=== PATIENT | male | born 1930 | race Caucasian/White ===

== ENCOUNTER 2018-09-29 20:46 | Inpatient (IN) | payer MEDICARE, OTHER ==
[~2018-09-29] VITALS: Ht 177.8 cm; Wt 56.1 kg
--- NOTE | 2018-09-29 21:06 | ERD ---
ER Documentation Chief Complaint Chief Complaint SOB, ANXIETY HPI The patient is a 87-year-old male, presenting to the ER because of acute dyspnea for the last 5 days, denies similar symptoms previously, denies fever, chills, cough, neck pain, chest pain, abdominal pain, vomiting, dizzy, diarrhea. He does not smoke nor drink or use illicit drug Past medical history: HIV, CAD, anxiety Past surgical history: Pacemaker ROS All systems reviewed and are negative except as per history of present illness. Allergies Allergies: Coded Allergies: No Known Allergy (Unverified , 09/29/18) Physical Exam Vitals Vital Signs Date Temp Pulse Resp B/P (MAP) Pulse Ox O2 O2 Flow FiO2 Time Delivery Rate 09/29/18 68 30 99 Non 12.0 21:31 Rebreather Mask 09/29/18 97.0 68 18 140/61 88 20:50 (87) Physical Exam Const: Mild to moderate acute distress. Head: Atraumatic. Eyes: Normal Conjunctiva. ENT: Normal External Ears, Nose and Mouth. Neck: Full range of motion. No meningismus. Resp: Bilateral expiratory wheezes, tachypneic. Cardio: Regular tachycardic Abd: Soft, non distended, normal bowel sounds, non tender. Skin: No petechiae or rashes. Back: No midline or flank tenderness. Ext: No cyanosis, or edema. Neur: Awake and alert. No focal deficit Psych: Anxious Result Diagram: 09/29/18213309/29/182133 Results 24 hrs Laboratory Tests Test 09/29/18 21:34 09/29/18 21:35 09/29/18 21:36 09/29/18 22:07 White Blood 5.6 10^3/ul Count Red Blood Count 5.14 10^6/ul Hemoglobin 12.1 g/dl Hematocrit 39.5 % Mean Corpuscular 76.8 fl Volume Mean Corpuscular 23.5 pg Hemoglobin Mean Corpuscular 30.6 g/dl Hemoglobin Alexandra nt Red Cell 22.0 % Distribution Width Platelet Count 68 10^3/UL Mean Platelet fl Volume Immature 0.400 % Granulocytes % Neutrophils % % Segmented 84 % Neutrophils % (Manual) Band Neutrophils 6 % % (Manual) Lymphocytes % % Lymphocytes % 7 % (Manual) Monocytes % % Monocytes % 3 % (Manual) Eosinophils % % Basophils % % Nucleated Red 6 % Blood Cells % Immature 0.020 10^3/ul Granulocytes # Neutrophils # 10^3/ul Neutrophils # 4.7 10^3/ul (Manual) Band Neutrophils 0.3 10^3/ul # Lymphocytes 0.3 10^3/ul (Manual) Lymphocytes # 10^3/ul Monocytes # 10^3/ul Monocytes # 0.1 10^3/ul (Manual) Eosinophils # 10^3/ul Basophils # 10^3/ul Nucleated Red 10^3/ul Blood Cells # Platelet DECREASED Estimate Giant Platelets 2 % Polychromasia 1+ Poikilocytosis 3+ Anisocytosis 1+ Macrocytosis 1+ Ovalocytes 2+ Sodium Level 141 mmol/L Potassium Level 4.3 mmol/L Chloride Level 108 mmol/L Carbon Dioxide 21 mmol/L Level Anion Gap 12 Blood Urea 82 mg/dl Nitrogen Creatinine 1.54 mg/dl Est Glomerular mL/min Filtrat Rate mL/min Glucose Level 144 mg/dl Calcium Level 9.4 mg/dl Total Bilirubin 2.2 mg/dl Direct Bilirubin 0.50 mg/dl Indirect 1.7 mg/dl Bilirubin Aspartate Amino 108 IU/L Transf (AST/SGOT ) Alanine 108 IU/L Aminotransferase (ALT/SGPT) Alkaline 274 IU/L Phosphatase Troponin I 0.253 ng/ml Total Protein 6.6 g/dl Albumin 3.5 g/dl Globulin 3.10 g/dl Albumin/Globulin 1.12 Ratio Prothrombin Time 25.0 Sec Prothrombin Time 2.0 Ratio INR 2.26 International Normalized Ratio Activated 32.0 Sec Partial Thrombop last Time POC Venous 3.7 mmol/L Lactate Blood Gas Blood arterial Specimen Source Arterial Blood 09/29/2018 10:28: Date Drawn 21 PM Arterial Blood 7.388 pH (Temp corrected) Arterial Blood 25.8 mmhg pCO2 (Temp correct) Arterial Blood 64.5 mmHG pO2 (Temp corrected) Arterial Blood 15.2 mmol/L HCO3 Arterial Blood -8.2 mmol/L Base Excess Arterial Blood 89.5 mmHG Oxygen Saturatio n Regan Test ACCEPTAB Arterial Blood Right Radial Gas Puncture Site Arterial 1.0 % Blood Carboxyhem oglobin Arterial Blood 0.4 % Methemoglobin Blood Gas A-a O2 140.7 mmHg Differential Oxyhemoglobin 88.2 % Percent Blood Gas 37.0 C Temperature Blood Gas NASAL CANNULA Modality FiO2 33.0 % Blood Gas AA Notified Whom Blood Gas 09/29/2018 10:42: Notified Time 10 PM Current Medications Medications Dose Sig/Serina Start Time Status Last (Trade) Ordered Route PRN Stop Time Admin Dose Reason Admin Sodium 1,910 ml BOLUS OVER 2 09/29/18 DC 09/29/18 Chloride HOURS STAT 21:14 21:40 (NS) IV* 09/29/18 21:15 1.25 mg ONCE ONCE 09/29/18 DC 09/29/18 Levalbuterol HHN 21:30 21:31 (Xopenex 09/29/18 21:31 Neb) Ipratropium 0.5 mg ONCE ONCE 09/29/18 DC 09/29/18 [place] HHN 21:30 21:31 (Atrovent 09/29/18 21:31 0.02% (Neb)) 50 ml @ Q12 IVPB 09/29/18 09/29/18 Meropenem/Sod 100 mls/hr 22:00 22:33 ium Chloride Vancomycin 250 ml @ ONCE ONCE 09/29/18 09/29/18 HCl 125 mls/hr IVPB 22:00 22:49 09/29/18 23:59 Aspirin 162 mg ONCE ONCE 09/29/18 DC 09/29/18 (Aspirin) PO 23:00 22:46 09/29/18 23:01 Alprazolam 0.25 mg ONCE ONCE 09/29/18 DC 09/29/18 (Xanax) PO 23:00 22:46 09/29/18 23:01 Sodium 1,000 ml @ [id number] IV 09/29/18 Chloride 75 mls/hr 22:48 IV Flush 3 ml PER 09/29/18 (NS 3 ml) PROTOCOL IV 23:00 Ondansetron 4 mg Q6H PRN 09/29/18 HCl (Zofran IV 23:00 Inj) NAUSEA/VOMITI NG 650 mg Q6H PRN 09/29/18 Acetaminophen PO .PAIN 1-3 23:00 (Tylenol OR TEMP Tab) Docusate 100 mg Q12H PRN 09/29/18 Sodium PO 23:00 (Colace) .CONSTIPATION Bisacodyl 5 mg DAILY PRN 09/29/18 (Dulcolax) PO 23:00 .CONSTIPATION 1.25 mg Q4H RESP 09/29/18 Levalbuterol THERAPY PRN 23:00 (Xopenex HHN Neb) SHORTNESS OF BREATH Ipratropium 0.5 mg Q4H RESP 09/29/18 [place] THERAPY PRN 23:00 (Atrovent HHN 0.02% SHORTNESS OF (Neb)) BREATH Procedures/MDM [place] [id number] Radiology Main Line: [phone] DIAGNOSTIC IMAGING REPORT Patient: SAM ELIAS : 1930 Age: 87 Sex: M MR #: [id number] DOS: 09/29/182113 Ordering MD: MARLEY ROSS MD Location: E/R Room/Bed: PROCEDURE: XR Chest, 1 View CLINICAL INDICATION: Sepsis. TECHNIQUE: Frontal view of the chest. COMPARISON: None FINDINGS: LUNGS: Increased interstitial markings and bilateral air space disease, suggesting mild pulmonary edema versus bilateral pneumonia. PLEURAL SPACE: Unremarkable. No pneumothorax. HEART: Cardiomegaly is present. MEDIASTINUM: Unremarkable. BONES/JOINTS: Status post median sternotomy. Degenerative changes of the t horacic spine are noted. VASCULATURE: The thoracic aorta is tortuous and atherosclerotic. TUBES, LINES AND DEVICES: There is a permanent pacemaker present. IMPRESSION: 1. Cardiomegaly is present. 2. Increased interstitial markings and bilateral air space disease, suggesting mild pulmonary edema versus bilateral pneumonia. RPTAT: [facility] Radha Muniz Physician Supervisor [facility] Date Time Electronically viewed and signed by Radha Muniz Physician Supervisor [facility] on 09/29/2018 21:49 RmC/ CC: MARLEY ROSS MD [id number] EKG: Read by emergency physician Rate/Rhythm: Pacer 74 beats/min No Further attempt to interpret the EKG UA Pending MEDICAL MAKING DECISION: The patient is a 87-year-old male, presenting with acute respiratory failure, acute severe sepsis, acute bilateral pneumonia, acute kidney injury, acute dehydration, acute troponin elevation. He was treated with normal saline 30 mm/kg IV, meropenem IV, vancomycin IV for acute severe sepsis due to acute pneumonia, aspirin 162 mg p.o. for acute to elevation, Xopenex 1.25 and Atrovent 0.5 mg for acute wheezing with good response. He was able to wean down from 100% NRM to 4 L nasal cannula with good O2 saturation MDM: Patient's infectious symptoms have not stabilized and the patient is at risk of rapid decompensation. The patient will be admitted for careful hydration, antibiotic therapy, and infectious source control. SEVERE SEPSIS CRITERIA: Infectious source: pna End organ damage indicated by: [Lactate > 2.0 mmol/L SEPSIS MANAGEMENT Time of recognition of severe sepsis: 9:40p. 3 HOUR BUNDLE Blood cultures x 2 before broad-spectrum antibiotics: [Yes] 30 ml/kg NS bolus [Completed] Initial lactate []3.7 Repeat lactate Pending SEPTIC SHOCK ASSESSMENT: [No] lactic acid > 4.0 [No] Persistent hypotension (SBP < 90 or 40 mmHg drop, MAP < 65) despite 30 mL/kg IV fluid bolus CRITICAL CARE Critical care time [35] minutes Emergent fluid management while maintaining close respiratory support. Provision of immediate and broad-spectrum antibiotic therapy. Simultaneous assessment for possible sources in order to direct targeted therapy. Consideration for invasive and chemical support to prevent cardiopulmonary charo apse. Critical care time is independent of procedures performed. Departure Diagnosis: Primary Impression: Respiratory failure, acute Additional Impressions: Severe sepsis PNA (pneumonia) Elevated troponin LINDA (acute kidney injury) Dehydration Coagulopathy LFT elevation Thrombocytopenia Condition: Serious Comments I discussed the findings with the patient. I discussed the patient with Dr Calderón at 10:40p , who was made aware of the lab, the treatment, the patient condition. The patient is admitted to Tel Disclaimer: Inadvertent spelling and grammatical errors are likely due to EHR/dictation software use and do not reflect on the overall quality of patient care. Also, please note that the electronic time recorded on this note does not necessarily reflect the actual time of the patient encounter. MARLEY ROSS MD Sep 29, 2018 21:06
[2018-09-29] MEDS ORDERED: SODIUM CHLORIDE 0.9% 1L BAG IV* STA (21:14)
[2018-09-29] MEDS ORDERED: LEVALBUTEROL (NEB) 1.25 MG/0.5 ML AMP HHN ONE (21:30)
[2018-09-29] MEDS ORDERED: IPRATROPIUM (NEB) 0.5 MG/2.5 ML AMP HHN ONE (21:30)
[2018-09-29] MEDS ORDERED: MEROPENEM 1 GM/50ML(PMX) 50 ML IVPB SCH (22:00)
[2018-09-29] MEDS ORDERED: VANCOMYCIN 1 GM (PMX) 250 ML IVPB ONE (22:00)
[2018-09-29] MEDS ORDERED: SOD CHLORIDE 0.9% 1,000 ML IV SCH (22:48)
[2018-09-29] MEDS ORDERED: ASPIRIN 81 MG TAB PO ONE (23:00)
[2018-09-29] MEDS ORDERED: IPRATROPIUM (NEB) 0.5 MG/2.5 ML AMP HHN PRN (23:00)
[2018-09-29] MEDS ORDERED: ACETAMINOPHEN 325 MG TAB PO PRN (23:00)
[2018-09-29] MEDS ORDERED: ALPRAZOLAM 0.25 MG TAB PO ONE (23:00)
[2018-09-29] MEDS ORDERED: ONDANSETRON 4 MG INJ IV PRN (23:00)
[2018-09-29] MEDS ORDERED: LEVALBUTEROL (NEB) 1.25 MG/0.5 ML AMP HHN PRN (23:00)
[2018-09-29] MEDS ORDERED: NACL 0.9% 3 ML SYG IV SCH (23:00)
[2018-09-29] MEDS ORDERED: BISACODYL (EC) 5 MG TAB PO PRN (23:00)
[2018-09-29] MEDS ORDERED: DOCUSATE SODIUM 100 MG CAP PO PRN (23:00)
--- NOTE | 2018-09-29 23:36 | HP ---
Date/Time of Note Date/Time of Note DATE: 09/29/18 TIME: 23:35 Assessment/Plan VTE Prophylaxis SCD applied (from Nsg): Yes Pharmacological prophylaxis: NA/contraindicated Pharm contraindication: low risk/ambulating Lines/Catheters IV Catheter Type (from Nrsg): Saline Lock Assessment/Plan Hospital Course This is a 87-year-old male being admitted to the telemetry floor for: #1 Acute hypoxic respiratory distress: Patient was requiring increased supplemental oxygenation in the emergency department. Patient currently is on 6 L nasal cannula. Allergies possibly multifactorial secondary to underlying pneumonia/pulmonary congestion. Clinically patient appears to be dry. We will proceed with Zosyn for underlying bilateral pneumonia. Given that patient also reported to me that he has HIV there is also concern for possible PCP pneumonia. I will start him on primaquine and clindamycin at the current time given the fact that he has acute kidney injury and so I would like to hold off on Bactrim. His O2 on ABG is below 70 so we will also initiate him on Solu-Medrol 40 mg twice daily. The patient on isolation precautions. We will proceed with a CT of the chest to further evaluate #2 suspect severe sepsis: While patient is afebrile and has a normal white blood cell count patient does have bandemia as well as lactic acidosis, which could be secondary to underlying pneumonia. At the current time a covering for community-acquired versus PCP pneumonia. Trend lactic acid levels. Await culture results. #3 bilateral pneumonia: Community-acquired versus PCP pneumonia: Zosyn, clindamycin and primaquine. Will check for PCP. If patient is indeed found to have PCP pneumonia likely will need to continue Clinda and primaquine for 21 days along with adjunctive steroids. CT chest to further eval. Will consult pulmonology #4 non-STEMI: Patient currently denies any chest pain, he did report he had chest discomfort earlier. This could be type I versus type II. EKG shows paced rhythm with right bundle branch block, negative scarbossa posterior criteria. Trend cardiac enzymes, echo in the am. Consult dr. moreland #5 lactic acidosis: Secondary likely to underlying infection, hypoxia. Treat with antibiotics and nebulizers, continue to monitor #6 LINDA: I do not have a baseline creatinine. Monitor renal function. Avoid nephrotoxic agents. Renally dose antibiotics. #7 hypertension: Monitor patient blood pressures, PRN hydralazine #8 history of HIV: Concern for possible underlying PCP pneumonia. Will check CD4 count, HIV viral load, droplet precautions. Consult ID #[id number] transaminitis: We will check right upper quadrant ultrasound, patient denies any right upper quadrant pain. This could be secondary to underlying sepsis, underling liver disease. #10 Coagulopathy: Patient does have elevated INR, again this could be secondary to underlying sepsis, underlying liver disease will check right upper quadrant ultrasound. #11 thrombocytopenia: Possibly secondary to underlying liver disease, HIV. Continue to monitor. #12 DVT GI prophylaxis: SCDs, Protonix Further treatment strategy will be implemented as per the clinical course. Result Diagram: 09/29/18213309/29/182133 Results 24hrs Laboratory Tests Test 09/29/18 21:34 09/29/18 21:35 09/29/18 21:36 09/29/18 22:07 White Blood Count 5.6 Red Blood Count 5.14 Hemoglobin 12.1 L Hematocrit 39.5 L Mean Corpuscular 76.8 L Volume Mean Corpuscular 23.5 L Hemoglobin Mean Corpuscular 30.6 L Hemoglobin Concen t Red Cell 22.0 H Distribution Width Platelet Count 68 L Mean Platelet Volume Immature 0.400 Granulocytes % Neutrophils % Segmented 84 H Neutrophils % (Manual) Band Neutrophils 6 H % (Manual) Lymphocytes % Lymphocytes % 7 L (Manual) Monocytes % Monocytes % 3 (Manual) Eosinophils % Basophils % Nucleated Red 6 H Blood Cells % Immature 0.020 Granulocytes # Neutrophils # Neutrophils # 4.7 (Manual) Band Neutrophils 0.3 # Lymphocytes 0.3 L (Manual) Lymphocytes # Monocytes # Monocytes # 0.1 L (Manual) Eosinophils # Basophils # Nucleated Red Blood Cells # Platelet Estimate DECREASED Giant Platelets 2 H Polychromasia 1+ Poikilocytosis 3+ Anisocytosis 1+ Macrocytosis 1+ Ovalocytes 2+ Sodium Level 141 Potassium Level 4.3 Chloride Level 108 Carbon Dioxide 21 Level Anion Gap 12 Blood Urea 82 H Nitrogen Creatinine 1.54 H Est Glomerular Filtrat Rate mL/min Glucose Level 144 Calcium Level 9.4 Total Bilirubin 2.2 H Direct Bilirubin 0.50 H Indirect 1.7 H Bilirubin Aspartate Amino 108 H Transf (AST/SGOT) Alanine 108 H Aminotransferase (ALT/SGPT) Alkaline 274 H Phosphatase Troponin I 0.253 *H Total Protein 6.6 Albumin 3.5 Globulin 3.10 Albumin/Globulin 1.12 Ratio Prothrombin Time 25.0 H Prothrombin Time 2.0 Ratio INR International 2.26 Normalized Ratio Activated 32.0 Partial Thrombopl ast Time POC Venous 3.7 *H Lactate Blood Gas Blood arterial Specimen Source Arterial Blood 09/29/2018 10:28: Date Drawn 21 PM Arterial Blood pH 7.388 (Temp corrected) Arterial Blood 25.8 L pCO2 (Temp correct) Arterial Blood 64.5 L pO2 (Temp corrected) Arterial Blood 15.2 L HCO3 Arterial Blood -8.2 L Base Excess Arterial Blood 89.5 L Oxygen Saturation Regan Test ACCEPTAB Arterial Blood Right Radial Gas Puncture Site Arterial 1.0 Blood Carboxyhemo globin Arterial Blood 0.4 Methemoglobin Blood Gas A-a O2 140.7 H Differential Oxyhemoglobin 88.2 L Percent Blood Gas 37.0 Temperature Blood Gas NASAL CANNULA Modality FiO2 33.0 Blood Gas AA Notified Whom Blood Gas 09/29/2018 10:42: Notified Time 10 PM HPI/ROS Admit Date/Time Admit Date/Time Hx of Present Illness Chief complaint: Shortness of breath for the last 5 days This is a 87-year-old male who presented to the emergency department with symptoms of shortness of breath and cough for the last 5 days. He denies having any fevers. He did report having some left-sided chest discomfort but denies any overt chest pain. Denies any swelling in his legs. He states that he lives at home by himself. He uses able to ambulate on his own however he has been tired over the last few days. He has a history of HIV and is currently on prophylactic medications he states but does not recall the names. He does have a history of hypertension and anxiety. He also has a pacemaker. Patient is a poor historian. In the emergency department patient was treated for pneumonia with antibiotics. Allergies: NKDA Medications: Unknown ROS Const: As per HPI Eyes : No pain discharge or redness or change in visual acuity ENT: No pain, sore throat, congestion, congestion, dysphagia or discharge Respiratory: As per HPI Cardiovascular: No chest pain, palpitation, PND, or edema GI : no change in appetite, abdominal pain, nausea, vomiting, diarrhea, constipation, or change in the color his stool Genitourinary: No dysuria, hematuria, flank pain , discharge or CVA tenderness Musculoskeletal: No joint pain, back pain, neck pain, restricted range of motion in neck or joints Skin: No rash, bruising or hives Neuro: No headache, dizziness, syncope, seizure, focal weakness Endocrine: No polyuria, polydipsia, temperature intolerance Psych: No hallucination, depression, anxiety or suicidal ideation PMH/Family/Social Past Medical History HIV, hypertension, anxiety Medications Current Medications Meropenem/Sodium Chloride 50 ml @ 100 mls/hr Q12 IVPB Last administered on 09/29/18at 22:33; Admin Dose 100 MLS/HR; Start 09/29/18 at 22:00 Vancomycin HCl 250 ml @ 125 mls/hr ONCE ONCE IVPB Last administered on 09/29/18at 22:49; Admin Dose 125 MLS/HR; Start 09/29/18 at 22:00; Stop 09/29/18 at 23:59 Sodium Chloride 1,000 ml @ 75 mls/hr [id number] IV ; Start 09/29/18 at 22:48 IV Flush (NS 3 ml) 3 ml PER PROTOCOL IV ; Start 09/29/18 at 23:00 Ondansetron HCl (Zofran Inj) 4 mg Q6H PRN IV NAUSEA/VOMITING; Start 09/29/18 at 23:00 Acetaminophen (Tylenol Tab) 650 mg Q6H PRN PO .PAIN 1-3 OR TEMP; Start 09/29/18 at 23:00 Docusate Sodium (Colace) 100 mg Q12H PRN PO .CONSTIPATION; Start 09/29/18 at 23:00 Bisacodyl (Dulcolax) 5 mg DAILY PRN PO .CONSTIPATION; Start 09/29/18 at 23:00 Levalbuterol (Xopenex Neb) 1.25 mg Q4H RESP THERAPY PRN HHN SHORTNESS OF BREATH; Start 09/29/18 at 23:00 Ipratropium Wallace (Atrovent 0.02% (Neb)) 0.5 mg Q4H RESP THERAPY PRN HHN SHORTNESS OF BREATH; Start 09/29/18 at 23:00 Coded Allergies: No Known Allergy (Unverified , 09/29/18) Past Surgical History Pacemaker Family History Significant Family History: no pertinent family hx Social History Alcohol Use: none Smoking Status: Never smoker Drug Use: none Exam/Review of Systems Vital Signs Vitals Vital Signs Date Temp Pulse Resp B/P (MAP) Pulse Ox O2 O2 Flow FiO2 Time Delivery Rate 09/29/18 68 30 99 Non 12.0 21:31 Rebreather Mask 09/29/18 97.0 140/61 20:50 (87) Exam Exam General: This is a cachectic appearing male, he does appear to have mild increased work of breathing HEENT: Atraumatic, normocephalic. The pupils are equal, round and reactive. Extraocular motor are intact Neck: Supple with full range of motion. No rigidity or meningismus Chest: Nontender Lungs: diminished breath sounds bilaterally, mild increased work of breathing Heart: Normal S1-S2, Regular rhythm and rate. No murmur, S3, or S4 Abdomen: Soft , nontender, nondistended , bowel sounds are present. No guarding no rebound tenderness , No masses or organomegaly. No costovertebral temporal angle mass Extremities: Normal to inspection, no edema no cyanosis Neurologic: Normal mental status, speech normal, cranial nerves II through XII are intact, motor and sensory are intact, Additional Comments EKG shows paced rhythm with right bundle branch block, negative scar posterior criteria. PROCEDURE: XR Chest, 1 View CLINICAL INDICATION: Sepsis. TECHNIQUE: Frontal view of the chest. COMPARISON: None FINDINGS: LUNGS: Increased interstitial markings and bilateral air space disease, suggesting mild pulmonary edema versus bilateral pneumonia. PLEURAL SPACE: Unremarkable. No pneumothorax. HEART: Cardiomegaly is present. MEDIASTINUM: Unremarkable. BONES/JOINTS: Status post median sternotomy. Degenerative changes of the thoracic spine are noted. VASCULATURE: The thoracic aorta is tortuous and atherosclerotic. TUBES, LINES AND DEVICES: There is a permanent pacemaker present. IMPRESSION: 1. Cardiomegaly is present. 2. Increased interstitial markings and bilateral air space disease, suggesting mild pulmonary edema versus bilateral pneumonia. RPTAT: [facility] Radha Muniz Physician Quality Control Assessor Date Time Electronically viewed and signed by Radha Muniz Physician Quality Control Assessor on 09/29/2018 21:49 RmC/ CC: MARLEY ROSS MD [id number] HERMES BRYANT Sep 29, 2018 23:36
[2018-09-30] VITALS (10 sets, daily range): BP systolic 139–152; BP diastolic 58–78; PULSE 65–89; RESP 18–22; Ht 177.8 cm; Wt 56.1 kg
[2018-09-30] MEDS ORDERED: FUROSEMIDE 20 MG INJ IV ONE (02:00)
[2018-09-30] MEDS ORDERED: FUROSEMIDE 40 MG INJ IV ONE (02:00)
[2018-09-30] MEDS: ALBUMIN HUMAN 25% 100 ML IV SCH ×2 (05:09→06:30)
[2018-09-30] MEDS: PIPER-TAZO 3.375 GM IV (PMX) 100 ML IVPB SCH ×3 (05:09→17:32)
[2018-09-30] MEDS ORDERED: METHYLPREDNISOLONE 40 MG INJ IV SCH (06:00)
[2018-09-30] MEDS ORDERED: PRIMAQUINE 15 MG TAB PO SCH (06:00)
[2018-09-30] MEDS ORDERED: CLINDAMYCIN 600 MG/D5W (PMX) 50 ML IVPB SCH (06:00)
[2018-09-30] MEDS: METHYLPREDNISOLONE 40 MG INJ IV SCH ×2 (06:29→21:36)
[2018-09-30] MEDS ORDERED: MAGNESIUM SULFATE 1 GM/D5W 100 ML IVPB ONE (07:00)
[2018-09-30] MEDS ORDERED: METOPROLOL 5 MG INJ IV ONE (07:00)
--- NOTE | 2018-09-30 08:11 | CONS ---
Assessment/Plan Assessment/Plan Hospital Course (Demo Recall) 1) bilateral airspace disease by CT, pulmonary edema vs caitlyn pneumonia he has no systemic symptoms such as fever, chills, NS, muscle aches to suggest active infection his WBC is WNL he has HIV but I doubt this is PCP until G6PD results are back to avoid dapsone or primaquin so d/c clinda/primaquin and start mepron I will talk to his HIV doc later today and find out what his CD4 counts are like and if they have been >250 will d/c mepron zosyn started and to continue and will add azithro for atypical lung coverage check legionella, mycoplasma get viral PCR of nares check nasal for MRSA 2) HIV pt is on complera which contains tenofovir which can cause renal issues and lactic acidosis hold complera at present talk to primary HIV doc regarding prior renal function 3) renal insufficiency see above check u/a and urine cx 4) increase in LFT's asymptomatic, if he has CHF this could be a mainfestation of vascular congestion u/s did not suggest liver disease but there was some thickening of GB wall, GB distension and a little of fluid around the GB consider HIDA scan 5) 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 no CP Past Medical History CAD, HIV, HTN Home Meds No Active Prescriptions or Reported Meds Medications Current Medications IV Flush (NS 3 ml) 3 ml PER PROTOCOL IV ; Start 09/29/18 at 23:00 Ondansetron HCl (Zofran Inj) 4 mg Q6H PRN IV NAUSEA/VOMITING; Start 09/29/18 at 23:00 Acetaminophen (Tylenol Tab) 650 mg Q6H PRN PO .PAIN 1-3 OR TEMP; Start 09/29/18 at 23:00 Docusate Sodium (Colace) 100 mg Q12H PRN PO .CONSTIPATION; Start 09/29/18 at 23:00 Bisacodyl (Dulcolax) 5 mg DAILY PRN PO .CONSTIPATION; Start 09/29/18 at 23:00 Levalbuterol (Xopenex Neb) 1.25 mg Q4H RESP THERAPY PRN HHN SHORTNESS OF BREATH; Start 09/29/18 at 23:00 Ipratropium [place] (Atrovent 0.02% (Neb)) 0.5 mg Q4H RESP THERAPY PRN HHN SHORTNESS OF BREATH; Start 09/29/18 at 23:00 Piperacillin Sod/ Tazobactam Sod 100 ml @ 200 mls/hr Q6 IVPB Last administered on 09/30/18at 05:09; Admin Dose 200 MLS/HR; Start 09/30/18 at 06:00 Methylprednisolone Sodium Succinate (Solu-Medrol) 40 mg Q12 IV Last administered on 09/30/18at 06:29; Admin Dose 40 MG; Start 09/30/18 at 06:00 Primaquine Phosphate (Primaquine) 30 mg DAILY PO Last administered on 09/30/18at 06:30; Admin Dose 30 MG; Start 09/30/18 at 06:00 Clindamycin HCl/ Dextrose 50 ml @ 50 mls/hr Q8 IVPB Last administered on 09/30/18at 06:37; Admin Dose 50 MLS/HR; Start 09/30/18 at 06:00 Famotidine (Pepcid Iv) 20 mg DAILY IV ; Start 09/30/18 at 09:00 Magnesium Sulfate/ Dextrose 100 ml @ 100 mls/hr ONCE ONCE IVPB ; Start 9 at 07:00; Stop 09/30/18 at 07:59 Allergies: Coded Allergies: No Known Allergy (Unverified , 09/29/18) Past Surgical History pacer, CABG Social History Alcohol Use: none Smoking Status: Never smoker Drug Use: none Exam/Review of Systems Exam Vitals Vital Signs Date Temp Pulse Resp B/P (MAP) Pulse Ox O2 O2 Flow FiO2 Time Delivery Rate 09/30/18 98.0 67 22 139/64 92 Nasal 07:38 (89) Cannula 09/30/18 6.0 05:45 Intake and Output 09/29/18 09/29/18 09/30/18 1414:59 22:59 06:59 IntakeIntake Total 1910 ml BalanceBalance 1910 ml Constitutional: alert, other (thin with sunken in cheeks) Eyes: nl sclera ENMT: mucosa pink and moist, other (no teeth) Neck: supple Respiratory: clear to auscultation Cardiovascular: regular rate and rhythm Gastrointestinal: soft, non-tender Musculoskeletal: nl extremities to inspection Neurological: other (non focal) Results Result Diagram: 09/29/18 2134 09/30/18 0529 Results 24hrs Laboratory Tests Test 09/29/18 21:34 09/29/18 21:35 09/29/18 21:36 09/29/18 22:07 White Blood Count 5.6 Red Blood Count 5.14 Hemoglobin 12.1 L Hematocrit 39.5 L Mean Corpuscular 76.8 L Volume Mean Corpuscular 23.5 L Hemoglobin Mean Corpuscular 30.6 L Hemoglobin Concen t Red Cell 22.0 H Distribution Width Platelet Count 68 L Mean Platelet Volume Immature 0.400 Granulocytes % Neutrophils % Segmented 84 H Neutrophils % (Manual) Band Neutrophils 6 H % (Manual) Lymphocytes % Lymphocytes % 7 L (Manual) Monocytes % Monocytes % 3 (Manual) Eosinophils % Basophils % Nucleated Red 6 H Blood Cells % Immature 0.020 Granulocytes # Neutrophils # Neutrophils # 4.7 (Manual) Band Neutrophils 0.3 # Lymphocytes 0.3 L (Manual) Lymphocytes # Monocytes # Monocytes # 0.1 L (Manual) Eosinophils # Basophils # Nucleated Red Blood Cells # Platelet Estimate DECREASED Giant Platelets 2 H Polychromasia 1+ Poikilocytosis 3+ Anisocytosis 1+ Macrocytosis 1+ Ovalocytes 2+ Sodium Level 141 Potassium Level 4.3 Chloride Level 108 Carbon Dioxide 21 Level Anion Gap 12 Blood Urea 82 H Nitrogen Creatinine 1.54 H Est Glomerular Filtrat Rate mL/min Glucose Level 144 Calcium Level 9.4 Total Bilirubin 2.2 H Direct Bilirubin 0.50 H Indirect 1.7 H Bilirubin Aspartate Amino 108 H Transf (AST/SGOT) Alanine 108 H Aminotransferase (ALT/SGPT) Alkaline 274 H Phosphatase Troponin I 0.253 *H Total Protein 6.6 Albumin 3.5 Globulin 3.10 Albumin/Globulin 1.12 Ratio Prothrombin Time 25.0 H Prothrombin Time 2.0 Ratio INR International 2.26 Normalized Ratio Activated 32.0 Partial Thrombopl ast Time POC Venous 3.7 *H Lactate Blood Gas Blood arterial Specimen Source Arterial Blood 09/29/2018 10:28: Date Drawn 21 PM Arterial Blood pH 7.388 (Temp corrected) Arterial Blood 25.8 L pCO2 (Temp correct) Arterial Blood 64.5 L pO2 (Temp corrected) Arterial Blood 15.2 L HCO3 Arterial Blood -8.2 L Base Excess Arterial Blood 89.5 L Oxygen Saturation Regan Test ACCEPTAB Arterial Blood Right Radial Gas Puncture Site Arterial 1.0 Blood Carboxyhemo globin Arterial Blood 0.4 Methemoglobin Blood Gas A-a O2 140.7 H Differential Oxyhemoglobin 88.2 L Percent Blood Gas 37.0 Temperature Blood Gas NASAL CANNULA Modality FiO2 33.0 Blood Gas AA Notified Whom Blood Gas 09/29/2018 10:42: Notified Time 10 PM Test 09/29/18 22:45 09/30/18 00:00 09/30/18 00:06 09/30/18 02:07 B-Type 20007 H Natriuretic Peptide Lactic Acid Level 3.5 *H 3.7 *H Creatine Kinase 153 Creatine Kinase 5.9 Index Creatinine Kinase 9.00 H MB (Mass) Troponin I 0.238 *H Test 09/30/18 05:29 09/30/18 05:30 Sodium Level 145 H Potassium Level 4.4 Chloride Level 113 H Carbon Dioxide 18 L Level Anion Gap 14 H Blood Urea 82 H Nitrogen Creatinine 1.36 H Est Glomerular Filtrat Rate mL/min Glucose Level 131 Hemoglobin A1c 5.8 Calcium Level 8.7 Magnesium Level 2.4 2.2 Creatine Kinase 134 Creatine Kinase 7.0 Index Creatinine Kinase 9.36 H MB (Mass) Troponin I 0.223 *H Procalcitonin 0.50 H Hepatitis A Pending Antibody Total Hepatitis B NEGATIVE Surface Antigen Hepatitis B POSITIVE H Surface Antibody Hepatitis B Core Pending Total Antibody Hepatitis C Pending Antibody HIV (1&2) REACTIVE H Antibody C-Reactive 15.5 H Protein Thyroid 3.660 Stimulating Hormone (TSH) Medications Medication Current Medications IV Flush (NS 3 ml) 3 ml PER PROTOCOL IV ; Start 09/29/18 at 23:00 Ondansetron HCl (Zofran Inj) 4 mg Q6H PRN IV NAUSEA/VOMITING; Start 09/29/18 at 23:00 Acetaminophen (Tylenol Tab) 650 mg Q6H PRN PO .PAIN 1-3 OR TEMP; Start 09/29/18 at 23:00 Docusate Sodium (Colace) 100 mg Q12H PRN PO .CONSTIPATION; Start 09/29/18 at 23:00 Bisacodyl (Dulcolax) 5 mg DAILY PRN PO .CONSTIPATION; Start 09/29/18 at 23:00 Levalbuterol (Xopenex Neb) 1.25 mg Q4H RESP THERAPY PRN HHN SHORTNESS OF BREATH; Start 09/29/18 at 23:00 Ipratropium [place] (Atrovent 0.02% (Neb)) 0.5 mg Q4H RESP THERAPY PRN HHN SHORTNESS OF BREATH; Start 09/29/18 at 23:00 Piperacillin Sod/ Tazobactam Sod 100 ml @ 200 mls/hr Q6 IVPB Last administered on 09/30/18at 05:09; Admin Dose 200 MLS/HR; Start 09/30/18 at 06:00 Methylprednisolone Sodium Succinate (Solu-Medrol) 40 mg Q12 IV Last administered on 09/30/18at 06:29; Admin Dose 40 MG; Start 09/30/18 at 06:00 Primaquine Phosphate (Primaquine) 30 mg DAILY PO Last administered on 09/30/18at 06:30; Admin Dose 30 MG; Start 09/30/18 at 06:00 Clindamycin HCl/ Dextrose 50 ml @ 50 mls/hr Q8 IVPB Last administered on 09/30/18at 06:37; Admin Dose 50 MLS/HR; Start 09/30/18 at 06:00 Famotidine (Pepcid Iv) 20 mg DAILY IV ; Start 09/30/18 at 09:00 Magnesium Sulfate/ Dextrose 100 ml @ 100 mls/hr ONCE ONCE IVPB ; Start 09/30/18 at 07:00; Stop 09/30/18 at 07:59 SCARLET ROBLERO MD Sep 30, 2018 08:09
[2018-09-30] MEDS: FAMOTIDINE 20 MG INJ IV SCH (08:16)
[2018-09-30] MEDS: ATOVAQUONE 750 MG/5 ML CUP PO SCH ×2 (10:25→21:36)
[2018-09-30] MEDS: AZITHROMYCIN 500MG/NS (PMX) 250 ML IVPB SCH (10:25)
--- NOTE | 2018-09-30 10:58 | CONS ---
Assessment/Plan Assessment/Plan Assessment/Plan (Daily) Chest x-ray showing cardiomegaly with pulmonary edema. CT scan of chest showing similar findings. BNP level is extremely high. Troponins are positive as well. Assessment recommendations; 1. Patient admitted with hypoxemia likely due to underlying HIV induced cardiomyopathy with pulmonary edema as the predominant etiology for hypoxemia and shortness of breath. Patient currently on appropriate diuretic regimen. 2. Based upon examination and CT chest as well as chest x-ray findings, I do not suspect any pneumonia. 3. Severely cachectic state. 4. Anemia and severe thrombocytopenia. 5. Chronic renal insufficiency. Continue with supportive care. Obtain follow-up chest x-ray in 24 hours. If there is significant improvement in chest x-ray, I would recommend stopping antibiotics. ID consult is requested as well. Prognosis is poor. Patient is appropriately DNR status. Consultation Date/Type/Reason Admit Date/Time Date of Consultation: Sep 30, 2018 Type of Consult Pulmonary Patient is a 87-year-old male who has been admitted to the hospital with hypoxemia at senior living. Upon evaluation a chest x-ray was done which is showing significant cardiomegaly with changes consistent with pulmonary edema, confirmed by CT imaging of the chest later. Patient denies any fever, sputum production, hemoptysis, any wheezing. According to him he is feeling much better since admission. Denies any abdominal pain, nausea or vomiting. Past medical history; 1. Patient is HIV positive. 2. Severely emaciated state. 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 4. Anemia and severe thrombocytopenia. 5. Chronic renal insufficiency. 6. History of pacemaker placement. Medications; reviewed. Allergies; none. Social history; patient has a history of smoking. Family history; noncontributory. Occupational history; patient has had miscellaneous occupations. Review of systems; denies any headache, visual changes, seizures. Any dysphasia. Denies any chest pain, angina. Any coughing or wheezing. Any sputum production or hemoptysis. Complains of chronic shortness of breath. Patient maintained on 24 hours of oxygen at senior living. Complains of weight loss. Denies any abdominal pain, hematochezia, melena. Patient experiencing continued weight loss. Complains of easy skin bruising. General exam; elderly male, appears totally macerated. Awake and alert. Currently in no distress. Date/Time of Note DATE: 09/30/18 TIME: 10:53 Past Medical History Home Meds No Active Prescriptions or Reported Meds Medications Current Medications IV Flush (NS 3 ml) 3 ml PER PROTOCOL IV ; Start 09/29/18 at 23:00 Ondansetron HCl (Zofran Inj) 4 mg Q6H PRN IV NAUSEA/VOMITING; Start 09/29/18 at 23:00 Acetaminophen (Tylenol Tab) 650 mg Q6H PRN PO .PAIN 1-3 OR TEMP; Start 09/29/18 at 23:00 Docusate Sodium (Colace) 100 mg Q12H PRN PO .CONSTIPATION; Start 09/29/18 at 23:00 Bisacodyl (Dulcolax) 5 mg DAILY PRN PO .CONSTIPATION; Start 09/29/18 at 23:00 Levalbuterol (Xopenex Neb) 1.25 mg Q4H RESP THERAPY PRN HHN SHORTNESS OF BREATH; Start 09/29/18 at 23:00 Ipratropium [place] (Atrovent 0.02% (Neb)) 0.5 mg Q4H RESP THERAPY PRN HHN SHORTNESS OF BREATH; Start 09/29/18 at 23:00 Piperacillin Sod/ Tazobactam Sod 100 ml @ 200 mls/hr Q6 IVPB Last administered on 09/30/18at 05:09; Admin Dose 200 MLS/HR; Start 09/30/18 at 06:00 Methylprednisolone Sodium Succinate (Solu-Medrol) 40 mg Q12 IV Last administered on 09/30/18at 06:29; Admin Dose 40 MG; Start 09/30/18 at 06:00 Famotidine (Pepcid Iv) 20 mg DAILY IV Last administered on 09/30/18at 08:16; Admin Dose 20 MG; Start 09/30/18 at 09:00 Atovaquone (Mepron) 750 mg BID PO Last administered on 09/30/18at 10:25; Admin Dose 750 MG; Start 09/30/18 at 09:00 Azithromycin 250 ml @ 250 mls/hr Q24H IVPB Last administered on 09/30/18at 10:25; Admin Dose 250 MLS/HR; Start 09/30/18 at 08:00 Allergies: Coded Allergies: No Known Allergy (Unverified , 09/29/18) Social History Alcohol Use: none Smoking Status: Never smoker Drug Use: none Exam/Review of Systems Exam Vitals Vital Signs Date Temp Pulse Resp B/P (MAP) Pulse Ox O2 O2 Flow FiO2 Time Delivery Rate 09/30/18 67 08:00 09/30/18 98.0 22 139/64 92 Nasal 07:38 (89) Cannula 09/30/18 6.0 05:45 Intake and Output 09/29/18 09/29/18 09/30/18 1515:00 23:00 07:00 IntakeIntake Total 1910 ml BalanceBalance 1910 ml Exam H EENT exam; supple neck, positive JVD. No lymphadenopathy. Midline trachea. No thyromegaly. Patient is edentulous. No oral thrush. Chest exam; diminished breath sounds bilaterally. S1-S2 audible, no murmurs. Regular rhythm. There is severe loss of muscles and intercostal spaces. Abdomen exam; scaphoid. Nontender. No organomegaly. Bowel sounds audible. Extremity exam; no peripheral edema. There is severe muscle loss involving the entire body. [employer] exam; no focal deficit. Results Result Diagram: 09/29/184 09/30/18 0529 Results 24hrs Laboratory Tests Test 09/29/18 21:34 09/29/18 21:35 09/29/18 21:36 09/29/18 22:07 White Blood Count 5.6 Red Blood Count 5.14 Hemoglobin 12.1 L Hematocrit 39.5 L Mean Corpuscular 76.8 L Volume Mean Corpuscular 23.5 L Hemoglobin Mean Corpuscular 30.6 L Hemoglobin Concen t Red Cell 22.0 H Distribution Width Platelet Count 68 L Mean Platelet Volume Immature 0.400 Granulocytes % Neutrophils % Segmented 84 H Neutrophils % (Manual) Band Neutrophils 6 H % (Manual) Lymphocytes % Lymphocytes % 7 L (Manual) Monocytes % Monocytes % 3 (Manual) Eosinophils % Basophils % Nucleated Red 6 H Blood Cells % Immature 0.020 Granulocytes # Neutrophils # Neutrophils # 4.7 (Manual) Band Neutrophils 0.3 # Lymphocytes 0.3 L (Manual) Lymphocytes # Monocytes # Monocytes # 0.1 L (Manual) Eosinophils # Basophils # Nucleated Red Blood Cells # Platelet Estimate DECREASED Giant Platelets 2 H Polychromasia 1+ Poikilocytosis 3+ Anisocytosis 1+ Macrocytosis 1+ Ovalocytes 2+ Sodium Level 141 Potassium Level 4.3 Chloride Level 108 Carbon Dioxide 21 Level Anion Gap 12 Blood Urea 82 H Nitrogen Creatinine 1.54 H Est Glomerular Filtrat Rate mL/min Glucose Level 144 Calcium Level 9.4 Total Bilirubin 2.2 H Direct Bilirubin 0.50 H Indirect 1.7 H Bilirubin Aspartate Amino 108 H Transf (AST/SGOT) Alanine 108 H Aminotransferase (ALT/SGPT) Alkaline 274 H Phosphatase Troponin I 0.253 *H Total Protein 6.6 Albumin 3.5 Globulin 3.10 Albumin/Globulin 1.12 Ratio Prothrombin Time 25.0 H Prothrombin Time 2.0 Ratio INR International 2.26 Normalized Ratio Activated 32.0 Partial Thrombopl ast Time POC Venous 3.7 *H Lactate Blood Gas Blood arterial Specimen Source Arterial Blood 09/29/2018 10:28: Date Drawn 21 PM Arterial Blood pH 7.388 (Temp corrected) Arterial Blood 25.8 L pCO2 (Temp correct) Arterial Blood 64.5 L pO2 (Temp corrected) Arterial Blood 15.2 L HCO3 Arterial Blood -8.2 L Base Excess Arterial Blood 89.5 L Oxygen Saturation Regan Test ACCEPTAB Arterial Blood Right Radial Gas Puncture Site Arterial 1.0 Blood Carboxyhemo globin Arterial Blood 0.4 Methemoglobin Blood Gas A-a O2 140.7 H Differential Oxyhemoglobin 88.2 L Percent Blood Gas 37.0 Temperature Blood Gas NASAL CANNULA Modality FiO2 33.0 Blood Gas AA Notified Whom Blood Gas 09/29/2018 10:42: Notified Time 10 PM Test 09/29/18 22:45 09/30/18 00:00 09/30/18 00:06 09/30/18 02:07 B-Type 39722 H Natriuretic Peptide Lactic Acid Level 3.5 *H 3.7 *H Creatine Kinase 153 Creatine Kinase 5.9 Index Creatinine Kinase 9.00 H MB (Mass) Troponin I 0.238 *H Test 09/30/18 05:29 09/30/18 05:30 Erythrocyte 4 Sedimentation Rate Sodium Level 145 H Potassium Level 4.4 Chloride Level 113 H Carbon Dioxide 18 L Level Anion Gap 14 H Blood Urea 82 H Nitrogen Creatinine 1.36 H Est Glomerular Filtrat Rate mL/min Glucose Level 131 Hemoglobin A1c 5.8 Calcium Level 8.7 Magnesium Level 2.4 2.2 Creatine Kinase 134 Creatine Kinase 7.0 Index Creatinine Kinase 9.36 H MB (Mass) Troponin I 0.223 *H Procalcitonin 0.50 H Hepatitis A POSITIVE H Antibody Total Hepatitis B NEGATIVE Surface Antigen Hepatitis B POSITIVE H Surface Antibody Hepatitis B Core REACTIVE H Total Antibody Hepatitis C NEGATIVE Antibody HIV (1&2) REACTIVE H Antibody C-Reactive 15.5 H Protein Thyroid 3.660 Stimulating Hormone (TSH) Medications Medication Current Medications IV Flush (NS 3 ml) 3 ml PER PROTOCOL IV ; Start 09/29/18 at 23:00 Ondansetron HCl (Zofran Inj) 4 mg Q6H PRN IV NAUSEA/VOMITING; Start 09/29/18 at 23:00 Acetaminophen (Tylenol Tab) 650 mg Q6H PRN PO .PAIN 1-3 OR TEMP; Start 09/29/18 at 23:00 Docusate Sodium (Colace) 100 mg Q12H PRN PO .CONSTIPATION; Start 09/29/18 at 23:00 Bisacodyl (Dulcolax) 5 mg DAILY PRN PO .CONSTIPATION; Start 09/29/18 at 23:00 Levalbuterol (Xopenex Neb) 1.25 mg Q4H RESP THERAPY PRN HHN SHORTNESS OF BREATH; Start 09/29/18 at 23:00 Ipratropium [place] (Atrovent 0.02% (Neb)) 0.5 mg Q4H RESP THERAPY PRN HHN SHORTNESS OF BREATH; Start 09/29/18 at 23:00 Piperacillin Sod/ Tazobactam Sod 100 ml @ 200 mls/hr Q6 IVPB Last administered on 09/30/18at 05:09; Admin Dose 200 MLS/HR; Start 09/30/18 at 06:00 Methylprednisolone Sodium Succinate (Solu-Medrol) 40 mg Q12 IV Last administered on 09/30/18at 06:29; Admin Dose 40 MG; Start 09/30/18 at 06:00 Famotidine (Pepcid Iv) 20 mg DAILY IV Last administered on 09/30/18at 08:16; Admin Dose 20 MG; Start 09/30/18 at 09:00 Atovaquone (Mepron) 750 mg BID PO Last administered on 09/30/18at 10:25; Admin Dose 750 MG; Start 09/30/18 at 09:00 Azithromycin 250 ml @ 250 mls/hr Q24H IVPB Last administered on 09/30/18at 10:25; Admin Dose 250 MLS/HR; Start 09/30/18 at 08:00 WILBER ZHU Sep 30, 2018 10:58
--- NOTE | 2018-09-30 12:07 | CONS ---
Assessment/Plan Assessment/Plan Hospital Course (Demo Recall) Summary Assessment and Plan: Assessment: Bilateral airspace disease noted on c imaging -Pulmonary edema versus bilateral pneumonia Infectious disease/pulmonary following Elevated LFTs with indirect hyperbilirubinemia -Ultrasound of the liver shows thickening of the gallbladder without evidence of gallstones or sludge- -Chronic liver disease versus hypoproteinemia versus acalculous cholec ystitis -Hepatitis B core antibody is reactive as well as hepatitis B surface antibody -Hep A total reactive- awaiting IgM -Pt on Complera which has a side effect of elevated LFTs - Will additionally check GABE, AMA, ASMA Microcytic anemia Thrombocytopenia Coagulopathy HIV Renal insufficiency CAD with history of pacemaker and CABG Elevated troponin-cardiology has been consulted Plan: We will additionally check GABE, AMA, ASMA Pt currently asymptomatic no complaints of abdominal pain, nausea, or vomiting Can consider HIDA scan for further evaluation Trend LFTs- concerns for underlying cirrhosis given Monitor H/H- transfuse as needed Will continue to monitor at this time Patient seen in collaboration with Dr. Forte CC: AMY FORTE MD ; Consultation Date/Type/Reason Admit Date/Time Date of Consultation: Sep 30, 2018 Type of Consult GI Reason for Consultation Elevated LFTs Date/Time of Note DATE: 09/30/18 TIME: 11:33 Hx of Present Illness This is an 87-year-old male with past medical history of HIV, HTN, CAD with a history of CABG, chronic renal insufficiency, pacemaker placement who was admitted to the hospital for shortness of breath and left-sided chest discomfort a CT of the chest was obtained showing severe cardiomegaly, bilateral pleural effusion, extensive airspace disease throughout both lungs likely representing pulmonary edema versus bilateral pneumonia, mild ascites in the upper abdomen likely related to fluid overload. Labs were obtained showing a microcytic anemia, thrombocytopenia, coagulopathy, elevated troponin, and elevated liver function tests including an indirect hyperbilirubinemia. Liver ultrasound was obtained showing thickening of the gallbladder wall without evidence of galls tones or sludge [place] could be related to chronic liver disease, hypoproteinemia, or a calculus cholecystitis. No biliary duction identified, small free fluid in the upper abdomen. Review of Systems: A 12 system, review was conducted and is negative except as noted in the HPI or here. Past Medical History Home Meds No Active Prescriptions or Reported Meds Medications Current Medications IV Flush (NS 3 ml) 3 ml PER PROTOCOL IV ; Start 09/29/18 at 23:00 Ondansetron HCl (Zofran Inj) 4 mg Q6H PRN IV NAUSEA/VOMITING; Start 09/29/18 at 23:00 Acetaminophen (Tylenol Tab) 650 mg Q6H PRN PO .PAIN 1-3 OR TEMP; Start 09/29/18 at 23:00 Docusate Sodium (Colace) 100 mg Q12H PRN PO .CONSTIPATION; Start 09/29/18 at 23:00 Bisacodyl (Dulcolax) 5 mg DAILY PRN PO .CONSTIPATION; Start 09/29/18 at 23:00 Levalbuterol (Xopenex Neb) 1.25 mg Q4H RESP THERAPY PRN HHN SHORTNESS OF BREATH; Start 09/29/18 at 23:00 Ipratropium [place] (Atrovent 0.02% (Neb)) 0.5 mg Q4H RESP THERAPY PRN HHN SHORTNESS OF BREATH; Start 09/29/18 at 23:00 Piperacillin Sod/ Tazobactam Sod 100 ml @ 200 mls/hr Q6 IVPB Last administered on 09/30/18at 05:09; Admin Dose 200 MLS/HR; Start 09/30/18 at 06:00 Methylprednisolone Sodium Succinate (Solu-Medrol) 40 mg Q12 IV Last administered on 09/30/18at 06:29; Admin Dose 40 MG; Start 09/30/18 at 06:00 Famotidine (Pepcid Iv) 20 mg DAILY IV Last administered on 09/30/18at 08:16; Admin Dose 20 MG; Start 09/30/18 at 09:00 Atovaquone (Mepron) 750 mg BID PO Last administered on 09/30/18at 10:25; Admin Dose 750 MG; Start 09/30/18 at 09:00 Azithromycin 250 ml @ 250 mls/hr Q24H IVPB Last administered on 09/30/18 10:25; Admin Dose 250 MLS/HR; Start 09/30/18 at 08:00 Allergies: Coded Allergies: No Known Allergy (Unverified , 09/29/18) Social History Alcohol Use: none Smoking Status: Never smoker Drug Use: none Exam/Review of Systems Exam Vitals Vital Signs Date Temp Pulse Resp B/P (MAP) Pulse Ox O2 O2 Flow FiO2 Time Delivery Rate 09/30/18 67 08:00 09/30/18 98.0 22 139/64 92 Nasal 07:38 (89) Cannula 09/30/18 6.0 05:45 Intake and Output 09/29/18 09/29/18 09/30/18 1515:00 23:00 07:00 IntakeIntake Total 1910 ml BalanceBalance 1910 ml Exam PHYSICAL EXAMINATION: GENERAL: Emaciated, alert & oriented x 3, dyspnea O2 in place SKIN: No lesions HEAD: Normocephalic, atraumatic, no tenderness. EYES: Pupils equal reactive to light and accommodation, no discharge. EARS/NOSE AND THROAT: Ears normal, nose normal, oropharynx normal. NECK: Supple, no masses. CHEST: Inspection within normal limits. CARDIOVASCULAR: Heart: Regular rate and rhythm RESPIRATORY: Diminished GASTROINTESTINAL AND LIVER: Abdomen: Soft, non tenderness, non-distended, normoactive bowel sounds. Rectal: Deferred. EXTREMITIES: No cyanosis, clubbing or edema. Results Result Diagram: 09/29/184 09/30/18 0529 Results 24hrs Laboratory Tests Test 09/29/18 21:34 09/29/18 21:35 09/29/18 21:36 09/29/18 22:07 White Blood Count 5.6 Red Blood Count 5.14 Hemoglobin 12.1 L Hematocrit 39.5 L Mean Corpuscular 76.8 L Volume Mean Corpuscular 23.5 L Hemoglobin Mean Corpuscular 30.6 L Hemoglobin Concen t Red Cell 22.0 H Distribution Width Platelet Count 68 L Mean Platelet Volume Immature 0.400 Granulocytes % Neutrophils % Segmented 84 H Neutrophils % (Manual) Band Neutrophils 6 H % (Manual) Lymphocytes % Lymphocytes % 7 L (Manual) Monocytes % Monocytes % 3 (Manual) Eosinophils % Basophils % Nucleated Red 6 H Blood Cells % Immature 0.020 Granulocytes # Neutrophils # Neutrophils # 4.7 (Manual) Band Neutrophils 0.3 # Lymphocytes 0.3 L (Manual) Lymphocytes # Monocytes # Monocytes # 0.1 L (Manual) Eosinophils # Basophils # Nucleated Red Blood Cells # Platelet Estimate DECREASED Giant Platelets 2 H Polychromasia 1+ Poikilocytosis 3+ Anisocytosis 1+ Macrocytosis 1+ Ovalocytes 2+ Sodium Level 141 Potassium Level 4.3 Chloride Level 108 Carbon Dioxide 21 Level Anion Gap 12 Blood Urea 82 H Nitrogen Creatinine 1.54 H Est Glomerular Filtrat Rate mL/min Glucose Level 144 Calcium Level 9.4 Total Bilirubin 2.2 H Direct Bilirubin 0.50 H Indirect 1.7 H Bilirubin Aspartate Amino 108 H Transf (AST/SGOT) Alanine 108 H Aminotransferase (ALT/SGPT) Alkaline 274 H Phosphatase Troponin I 0.253 *H Total Protein 6.6 Albumin 3.5 Globulin 3.10 Albumin/Globulin 1.12 Ratio Prothrombin Time 25.0 H Prothrombin Time 2.0 Ratio INR International 2.26 Normalized Ratio Activated 32.0 Partial Thrombopl ast Time POC Venous 3.7 *H Lactate Blood Gas Blood arterial Specimen Source Arterial Blood 09/29/2018 10:28: Date Drawn 21 PM Arterial Blood pH 7.388 (Temp corrected) Arterial Blood 25.8 L pCO2 (Temp correct) Arterial Blood 64.5 L pO2 (Temp corrected) Arterial Blood 15.2 L HCO3 Arterial Blood -8.2 L Base Excess Arterial Blood 89.5 L Oxygen Saturation Regan Test ACCEPTAB Arterial Blood Right Radial Gas Puncture Site Arterial 1.0 Blood Carboxyhemo globin Arterial Blood 0.4 Methemoglobin Blood Gas A-a O2 140.7 H Differential Oxyhemoglobin 88.2 L Percent Blood Gas 37.0 Temperature Blood Gas NASAL CANNULA Modality FiO2 33.0 Blood Gas AA Notified Whom Blood Gas 09/29/2018 10:42: Notified Time 10 PM Test 09/29/18 22:45 09/30/18 00:00 09/30/18 00:06 09/30/18 02:07 B-Type 64106 H Natriuretic Peptide Lactic Acid Level 3.5 *H 3.7 *H Creatine Kinase 153 Creatine Kinase 5.9 Index Creatinine Kinase 9.00 H MB (Mass) Troponin I 0.238 *H Test 09/30/18 05:29 09/30/18 05:30 09/30/18 10:32 Erythrocyte 4 Sedimentation Rate Sodium Level 145 H Potassium Level 4.4 Chloride Level 113 H Carbon Dioxide 18 L Level Anion Gap 14 H Blood Urea 82 H Nitrogen Creatinine 1.36 H Est Glomerular Filtrat Rate mL/min Glucose Level 131 Hemoglobin A1c 5.8 Calcium Level 8.7 Magnesium Level 2.4 2.2 Creatine Kinase 134 119 Creatine Kinase 7.0 Pending Index Creatinine Kinase 9.36 H Pending MB (Mass) Troponin I 0.223 *H Pending Procalcitonin 0.50 H Hepatitis A POSITIVE H Antibody Total Hepatitis B NEGATIVE Surface Antigen Hepatitis B POSITIVE H Surface Antibody Hepatitis B Core REACTIVE H Total Antibody Hepatitis C NEGATIVE Antibody HIV (1&2) REACTIVE H Antibody C-Reactive 15.5 H Protein Thyroid 3.660 Stimulating Hormone (TSH) Medications Medication Current Medications IV Flush (NS 3 ml) 3 ml PER PROTOCOL IV ; Start 09/29/18 at 23:00 Ondansetron HCl (Zofran Inj) 4 mg Q6H PRN IV NAUSEA/VOMITING; Start 09/29/18 at 23:00 Acetaminophen (Tylenol Tab) 650 mg Q6H PRN PO .PAIN 1-3 OR TEMP; Start 09/29/18 at 23:00 Docusate Sodium (Colace) 100 mg Q12H PRN PO .CONSTIPATION; Start 09/29/18 at 23:00 Bisacodyl (Dulcolax) 5 mg DAILY PRN PO .CONSTIPATION; Start 09/29/18 at 23:00 Levalbuterol (Xopenex Neb) 1.25 mg Q4H RESP THERAPY PRN HHN SHORTNESS OF BREATH; Start 09/29/18 at 23:00 Ipratropium [place] (Atrovent 0.02% (Neb)) 0.5 mg Q4H RESP THERAPY PRN HHN SHOR TNESS OF BREATH; Start 09/29/18 at 23:00 Piperacillin Sod/ Tazobactam Sod 100 ml @ 200 mls/hr Q6 IVPB Last administered on 09/30/18at 05:09; Admin Dose 200 MLS/HR; Start 09/30/18 at 06:00 Methylprednisolone Sodium Succinate (Solu-Medrol) 40 mg Q12 IV Last administered on 09/30/18at 06:29; Admin Dose 40 MG; Start 09/30/18 at 06:00 Famotidine (Pepcid Iv) 20 mg DAILY IV Last administered on 09/30/18at 08:16; Admin Dose 20 MG; Start 09/30/18 at 09:00 Atovaquone (Mepron) 750 mg BID PO Last administered on 09/30/18at 10:25; Admin Dose 750 MG; Start 09/30/18 at 09:00 Azithromycin 250 ml @ 250 mls/hr Q24H IVPB Last administered on 09/30/18at 10:25; Admin Dose 250 MLS/HR; Start 09/30/18 at 08:00 HALI GROVE Sep 30, 2018 11:51
[2018-09-30] MEDS ORDERED: PHENOL 1.4% SOLN 180 ML BTL MT PRN (13:00)
--- NOTE | 2018-09-30 15:38 | PN ---
Date/Time of Note Date/Time of Note DATE: 09/30/18 TIME: 15:08 Assessment/Plan VTE Prophylaxis Risk score (from Ns)>0 risk: 5 SCD applied (from Ns): No SCD contraindicated: patient refusal Pharmacological prophylaxis: NA/contraindicated Pharm contraindication: thrombocytopenia Lines/Catheters [facility] Peripheral IV Urinary Cath still in place: No Assessment/Plan Assessment/Plan 1. Acute hypoxic respiratory failure - Pulm on board and recommendations appreciated. Appears more cardiac etiology for respiratory issues. No PNA appreciated and more likely pulmonary edema - continue supplemental O2 to maintain saturations >90% - continue steroids and nebs - imaging studies reviewed 2. Elevated LFT - Gi consulted for further recommendation and appreciate consultation - may be secondary to congestion vs underlying liver dx 3. NSTEMI - asymptomatic - most likely type 2 - EKG shows paced rhythm with RBBB - ECHO pending - Cardiology consulted for further recommendations 4. LINDA - unsure baseline - improvement with fluids - on HAART therapy which may effect renal function 5. HIV - holding HAART therapy at this time - ID consultation appreciated - CD4 ct pending 6. HTN - stable 7. Coagulopathy - secondary to liver dz. no herbert bleeding appreciated 8. Thrombocytopenia - 2/2 liver disease - no herbert bleeding or need for transfusions at this time 9. Cachexia - dietary consultation placed 10. Disposition - Continue current plan of care and monitor for improvement in overall condition Result Diagram: 09/29/18 2134 09/30/18 0529 Results 24hrs Laboratory Tests Test 09/29/18 21:34 09/29/18 21:35 09/29/18 21:36 09/29/18 22:07 White Blood Count 5.6 Red Blood Count 5.14 Hemoglobin 12.1 L Hematocrit 39.5 L Mean Corpuscular 76.8 L Volume Mean Corpuscular 23.5 L Hemoglobin Mean Corpuscular 30.6 L Hemoglobin Concen t Red Cell 22.0 H Distribution Width Platelet Count 68 L Mean Platelet Volume Immature 0.400 Granulocytes % Neutrophils % Segmented 84 H Neutrophils % (Manual) Band Neutrophils 6 H % (Manual) Lymphocytes % Lymphocytes % 7 L (Manual) Monocytes % Monocytes % 3 (Manual) Eosinophils % Basophils % Nucleated Red 6 H Blood Cells % Immature 0.020 Granulocytes # Neutrophils # Neutrophils # 4.7 (Manual) Band Neutrophils 0.3 # Lymphocytes 0.3 L (Manual) Lymphocytes # Monocytes # Monocytes # 0.1 L (Manual) Eosinophils # Basophils # Nucleated Red Blood Cells # Platelet Estimate DECREASED Giant Platelets 2 H Polychromasia 1+ Poikilocytosis 3+ Anisocytosis 1+ Macrocytosis 1+ Ovalocytes 2+ Sodium Level 141 Potassium Level 4.3 Chloride Level 108 Carbon Dioxide 21 Level Anion Gap 12 Blood Urea 82 H Nitrogen Creatinine 1.54 H Est Glomerular Filtrat Rate mL/min Glucose Level 144 Calcium Level 9.4 Total Bilirubin 2.2 H Direct Bilirubin 0.50 H Indirect 1.7 H Bilirubin Aspartate Amino 108 H Transf (AST/SGOT) Alanine 108 H Aminotransferase (ALT/SGPT) Alkaline 274 H Phosphatase Troponin I 0.253 *H Total Protein 6.6 Albumin 3.5 Globulin 3.10 Albumin/Globulin 1.12 Ratio Prothrombin Time 25.0 H Prothrombin Time 2.0 Ratio INR International 2.26 Normalized Ratio Activated 32.0 Partial Thrombopl ast Time POC Venous 3.7 *H Lactate Blood Gas Blood arterial Specimen Source Arterial Blood 09/29/2018 10:28: Date Drawn 21 PM Arterial Blood pH 7.388 (Temp corrected) Arterial Blood 25.8 L pCO2 (Temp correct) Arterial Blood 64.5 L pO2 (Temp corrected) Arterial Blood 15.2 L HCO3 Arterial Blood -8.2 L Base Excess Arterial Blood 89.5 L Oxygen Saturation Regan Test ACCEPTAB Arterial Blood Right Radial Gas Puncture Site Arterial 1.0 Blood Carboxyhemo globin Arterial Blood 0.4 Methemoglobin Blood Gas A-a O2 140.7 H Differential Oxyhemoglobin 88.2 L Percent Blood Gas 37.0 Temperature Blood Gas NASAL CANNULA Modality FiO2 33.0 Blood Gas AA Notified Whom Blood Gas 09/29/2018 10:42: Notified Time 10 PM Test 09/29/18 22:45 09/30/18 00:00 09/30/18 00:06 09/30/18 02:07 B-Type 31157 H Natriuretic Peptide Lactic Acid Level 3.5 *H 3.7 *H Creatine Kinase 153 Creatine Kinase 5.9 Index Creatinine Kinase 9.00 H MB (Mass) Troponin I 0.238 *H Test 09/30/18 05:29 09/30/18 05:30 09/30/18 10:32 Erythrocyte 4 Sedimentation Rate Sodium Level 145 H Potassium Level 4.4 Chloride Level 113 H Carbon Dioxide 18 L Level Anion Gap 14 H Blood Urea 82 H Nitrogen Creatinine 1.36 H Est Glomerular Filtrat Rate mL/min Glucose Level 131 Hemoglobin A1c 5.8 Calcium Level 8.7 Magnesium Level 2.4 2.2 Creatine Kinase 134 119 Creatine Kinase 7.0 6.6 Index Creatinine Kinase 9.36 H 7.83 H MB (Mass) Troponin I 0.223 *H 0.244 *H Procalcitonin 0.50 H Hepatitis A POSITIVE H Antibody Total Hepatitis B NEGATIVE Surface Antigen Hepatitis B POSITIVE H Surface Antibody Hepatitis B Core REACTIVE H Total Antibody Hepatitis C NEGATIVE Antibody HIV (1&2) REACTIVE H Antibody C-Reactive 15.5 H Protein Thyroid 3.660 Stimulating Hormone (TSH) Subjective 24 Hr Interval Summary Free Text/Dictation Patient is complaining of sore throat but denies any respiratory issues. Hard to understand but does admit to living alone. Follows with MD for HIV monitoring. States gained and lost 40lb recently Exam/Review of Systems Exam Vitals Vital Signs Date Temp Pulse Resp B/P (MAP) Pulse Ox O2 O2 Flow FiO2 Time Delivery Rate 09/30/18 98.1 69 20 144/72 94 Nasal 11:37 (96) Cannula 09/30/18 4.0 07:45 Intake and Output 09/29/18 09/29/18 09/30/18 1515:00 23:00 07:00 IntakeIntake Total 1910 ml BalanceBalance 1910 ml Exam General: cachetic male, no acute distress. mumbling but someone comprehensible. dry mucous membranes neck: supple Chest: Nontender Lungs: diminished breath sounds bilaterally, no crackles or wheezing. Heart: Normal S1-S2, Regular rhythm and rate. No murmur, S3, or S4 Abdomen: Soft , nontender, nondistended , bowel sounds are present. No guarding no rebound tenderness Extremities: Normal to inspection, no edema no cyanosis Results Results 24hrs Laboratory Tests Test 09/29/18 21:34 09/29/18 21:35 09/29/18 21:36 09/29/18 22:07 White Blood Count 5.6 Red Blood Count 5.14 Hemoglobin 12.1 L Hematocrit 39.5 L Mean Corpuscular 76.8 L Volume Mean Corpuscular 23.5 L Hemoglobin Mean Corpuscular 30.6 L Hemoglobin Concen t Red Cell 22.0 H Distribution Width Platelet Count 68 L Mean Platelet Volume Immature 0.400 Granulocytes % Neutrophils % Segmented 84 H Neutrophils % (Manual) Band Neutrophils 6 H % (Manual) Lymphocytes % Lymphocytes % 7 L (Manual) Monocytes % Monocytes % 3 (Manual) Eosinophils % Basophils % Nucleated Red 6 H Blood Cells % Immature 0.020 Granulocytes # Neutrophils # Neutrophils # 4.7 (Manual) Band Neutrophils 0.3 # Lymphocytes 0.3 L (Manual) Lymphocytes # Monocytes # Monocytes # 0.1 L (Manual) Eosinophils # Basophils # Nucleated Red Blood Cells # Platelet Estimate DECREASED Giant Platelets 2 H Polychromasia 1+ Poikilocytosis 3+ Anisocytosis 1+ Macrocytosis 1+ Ovalocytes 2+ Sodium Level 141 Potassium Level 4.3 Chloride Level 108 Carbon Dioxide 21 Level Anion Gap 12 Blood Urea 82 H Nitrogen Creatinine 1.54 H Est Glomerular Filtrat Rate mL/min Glucose Level 144 Calcium Level 9.4 Total Bilirubin 2.2 H Direct Bilirubin 0.50 H Indirect 1.7 H Bilirubin Aspartate Amino 108 H Transf (AST/SGOT) Alanine 108 H Aminotransferase (ALT/SGPT) Alkaline 274 H Phosphatase Troponin I 0.253 *H Total Protein 6.6 Albumin 3.5 Globulin 3.10 Albumin/Globulin 1.12 Ratio Prothrombin Time 25.0 H Prothrombin Time 2.0 Ratio INR International 2.26 Normalized Ratio Activated 32.0 Partial Thrombopl ast Time POC Venous 3.7 *H Lactate Blood Gas Blood arterial Specimen Source Arterial Blood 09/29/2018 10:28: Date Drawn 21 PM Arterial Blood pH 7.388 (Temp corrected) Arterial Blood 25.8 L pCO2 (Temp correct) Arterial Blood 64.5 L pO2 (Temp corrected) Arterial Blood 15.2 L HCO3 Arterial Blood -8.2 L Base Excess Arterial Blood 89.5 L Oxygen Saturation Regan Test ACCEPTAB Arterial Blood Right Radial Gas Puncture Site Arterial 1.0 Blood Carboxyhemo globin Arterial Blood 0.4 Methemoglobin Blood Gas A-a O2 140.7 H Differential Oxyhemoglobin 88.2 L Percent Blood Gas 37.0 Temperature Blood Gas NASAL CANNULA Modality FiO2 33.0 Blood Gas AA Notified Whom Blood Gas 09/29/2018 10:42: Notified Time 10 PM Test 09/29/18 22:45 09/30/18 00:00 09/30/18 00:06 09/30/18 02:07 B-Type 39745 H Natriuretic Peptide Lactic Acid Level 3.5 *H 3.7 *H Creatine Kinase 153 Creatine Kinase 5.9 Index Creatinine Kinase 9.00 H MB (Mass) Troponin I 0.238 *H Test 09/30/18 05:29 09/30/18 05:30 09/30/18 10:32 Erythrocyte 4 Sedimentation Rate Sodium Level 145 H Potassium Level 4.4 Chloride Level 113 H Carbon Dioxide 18 L Level Anion Gap 14 H Blood Urea 82 H Nitrogen Creatinine 1.36 H Est Glomerular Filtrat Rate mL/min Glucose Level 131 Hemoglobin A1c 5.8 Calcium Level 8.7 Magnesium Level 2.4 2.2 Creatine Kinase 134 119 Creatine Kinase 7.0 6.6 Index Creatinine Kinase 9.36 H 7.83 H MB (Mass) Troponin I 0.223 *H 0.244 *H Procalcitonin 0.50 H Hepatitis A POSITIVE H Antibody Total Hepatitis B NEGATIVE Surface Antigen Hepatitis B POSITIVE H Surface Antibody Hepatitis B Core REACTIVE H Total Antibody Hepatitis C NEGATIVE Antibody HIV (1&2) REACTIVE H Antibody C-Reactive 15.5 H Protein Thyroid 3.660 Stimulating Hormone (TSH) Medications Medication Current Medications IV Flush (NS 3 ml) 3 ml PER PROTOCOL IV ; Start 09/29/18 at 23:00 Ondansetron HCl (Zofran Inj) 4 mg Q6H PRN IV NAUSEA/VOMITING; Start 09/29/18 at 23:00 Acetaminophen (Tylenol Tab) 650 mg Q6H PRN PO .PAIN 1-3 OR TEMP; Start 09/29/18 at 23:00 Docusate Sodium (Colace) 100 mg Q12H PRN PO .CONSTIPATION; Start 09/29/18 at 23:00 Bisacodyl (Dulcolax) 5 mg DAILY PRN PO .CONSTIPATION; Start 09/29/18 at 23:00 Levalbuterol (Xopenex Neb) 1.25 mg Q4H RESP THERAPY PRN HHN SHORTNESS OF BREATH; Start 09/29/18 at 23:00 Ipratropium [place] (Atrovent 0.02% (Neb)) 0.5 mg Q4H RESP THERAPY PRN HHN SHOR TNESS OF BREATH; Start 09/29/18 at 23:00 Piperacillin Sod/ Tazobactam Sod 100 ml @ 200 mls/hr Q6 IVPB Last administered on 09/30/18at 12:38; Admin Dose 200 MLS/HR; Start 09/30/18 at 06:00 Methylprednisolone Sodium Succinate (Solu-Medrol) 40 mg Q12 IV Last administered on 09/30/18at 06:29; Admin Dose 40 MG; Start 09/30/18 at 06:00 Famotidine (Pepcid Iv) 20 mg DAILY IV Last administered on 09/30/18at 08:16; Admin Dose 20 MG; Start 09/30/18 at 09:00 Atovaquone (Mepron) 750 mg BID PO Last administered on 09/30/18at 10:25; Admin Dose 750 MG; Start 09/30/18 at 09:00 Azithromycin 250 ml @ 250 mls/hr Q24H IVPB Last administered on 09/30/18 10:25; Admin Dose 250 MLS/HR; Start 09/30/18 at 08:00 Phenol (Chloraseptic Throat [place]) 2 spray Q2H PRN MT SORE THROAT; Start 09/30/18 at 13:00 [email or web address] PRIETO MD Sep 30, 2018 15:32
--- NOTE | 2018-09-30 18:48 | RADRPT ---
Echocardiogram Report Patient Name: SAM ELIASPatient ID: [id number] : 1930 (87y 11m)Study Date: 09/30/2018 8:57:19 AM Gender: MAccession #: [id number] Tech: Ry Son [facility] Location: 629 Ref.Physician: HERMES BRYANT Height(Cm): BSA: Weight(Kg): Quality: AdequateOrder Physician: HERMES BRYANT Account #: Procedures: Echocardiographic Report: Transthoracic echocardiogram with complete 2D, M-Mode, and doppler examination. Indications: Elevated troponin. Measurements: 2D/M Mode Doppler Measurement Value Normal Range Measurement Value Normal Range LVIDd 2D 5.5 [ 4.2 - 5.8 ] cm AV Mean Todd 1.5 [ 70.0 - 90.0 ] cm/sec LVIDs 2D 4.5 [ 2.5 - 4.0 ] cm AV Mean PG 11.0 [ 2.0 - 4.0 ] mmHg LVPWd 2D 0.9 [ 0.6 - 1.0 ] cm AV VTI 45.5 cm IVSd 2D 1.4 [ 0.6 - 1.0 ] cm LVOT Peak Todd 0.7 [ 70.0 - 110.0 ] cm/sec AoR Diam 2D 2.3 [ 2.6 - 3.4 ] cm LVOT Peak PG 2.0 [ 2.0 - 6.0 ] mmHg EDV 2D 146.0 [ 62.0 - 150.0 ] ml MV E Peak Todd 0.9 [ 60.0 - 130.0 ] cm/sec ESV 2D 94.4 [ 21.0 - 61.0 ] ml MV A Peak Todd 0.9 [ 100.0 - 120.0 ] cm/sec EF 2D 35.3 [ 52.0 - 72.0 ] percent MV E/A 1.0 [ 0.8 - 1.5 ] ratio LA Dimen 2D 4.7 [ 3.0 - 4.0 ] cm MV Decel Time 169 [ 104 - 258 ] msec LVOT Diam 2.0 [ 2.3 - 2.9 ] cm Lat E` Todd 0.1 [ 10.0 - 15.0 ] cm/sec Lateral E/E` 14.7 [ 1.0 - 2.0 ] ratio MV E/A 1.0 [ 0.8 - 1.5 ] ratio TR Peak Todd 2.3 [ 100.0 - 280.0 ] cm/sec TR Peak PG 22.0 mmHg RVSP 37.0 [ 10.0 - 36.0 ] mmHg RA Pressure 15.0 mmHg Findings: Left Ventricle: Normal left ventricular cavity size. Mild asymmetric septal hypertrophy. Severe global left ventricular systolic dysfunction. Ejection fraction is visually estimated at 30-35 %. Tissue Doppler/Mitral Doppler indices are consistent with impaired relaxation (Stage I diastolic dysfunction). Right Ventricle: Moderate right ventricular systolic dysfunction. Moderate enlargement of right ventricle. Linear artifact in right ventricle suggestive of catheter, pacer lead, or ICD lead. Left Atrium: There is moderate enlargement of left atrium. Right Atrium: There is severe enlargement of right atrium. Mitral Valve: Mild mitral leaflet calcification. Moderate mitral annular calcification. Mild mitral valve regurgitation. Aortic Valve: Normal appearance of the aortic valve. No significant aortic stenosis or insufficiency. Aortic valve Max velocity 2.17 m/sec. Max PG 19.00 mmHg. Mean PG 11.00 mmHg. Tricuspid Valve: The estimated Peak RVSP is 37 mmHg. Tricuspid valve appears mildly thickened. There is moderate tricuspid regurgitation. Pulmonic Valve: Pulmonic valve not well visualized. There is mild pulmonic regurgitation. Pericardium: Normal pericardium with no significant pericardial effusion. Left pleural effusion seen. Aorta: Normal aortic root. IVC: Dilated IVC without respiratory collapse consistent with elevated right atrial pressure. Conclusions: Normal left ventricular cavity size. Mild asymmetric septal hypertrophy. Severe global left ventricular systolic dysfunction. Ejection fraction is visually estimated at 30-35 %. Tissue Doppler/Mitral Doppler indices are consistent with impaired relaxation (Stage I diastolic dysfunction). ). Moderate right ventricular systolic dysfunction. Moderate enlargement of right ventricle. Linear artifact in right ventricle suggestive of catheter, pacer lead, or ICD lead. The estimated Peak RVSP is 37 mmHg. Tricuspid valve appears mildly thickened. There is moderate tricuspid regurgitation. Mild mitral leaflet calcification. Moderate mitral annular calcification. Mild mitral valve regurgitation. Pulmonic valve not well visualized. There is mild pulmonic regurgitation. Electronically Signed By: Rajeev Qiu 2018-09-30 18:46:51 PDT
--- NOTE | 2018-09-30 20:21 | CONS ---
DATE OF ADMISSION: 09/29/2018 DATE OF CONSULTATION: 09/30/2018 TYPE OF CONSULTATION: Cardiology. REASON FOR CONSULTATION: Positive troponin, assess significance. REQUESTING PHYSICIAN: Kale Calderón MD HISTORY OF PRESENT ILLNESS: Mr. Sweet is an 87-year-old male with a history of HIV on HAART therap y, hypertension, who presented with respiratory distress. Initially upon arrival, temperature of 97, blood pressure 140/61, pulse 68, respiratory rate 18, satting 88%. The patient's labs revealed nota ble for a white blood cell count of 5.6, hemoglobin of 12.1 and platelet count of 68, a sodium 145, p otassium 4.4, creatinine 1.36, BUN 82. INR of 2.26. ABG with a pH of 7.38, a PaO2 of 64, pCO2 of 25 . HIV antibody reactive, hep B antibody positive, hep B surface antibody positive. The patient's el ectrocardiogram revealed wide complex rhythm with intermittent demand pacing, right bundle branch blo ck pattern, somewhat difficult to discern Ps with likely sinus rhythm with secondary repolarization a bnormalities. The patient was admitted to the floor and since admit to floor, has had troponins tren ded going from 0.253 down to 0.244. The patient at this time denies chest pain, has ongoing shortnes s of breath which he says is improving. The patient underwent a liver ultrasound revealing a thicken ed gallbladder wall without evidence of gallstones or sludge; a chest CT that revealed severe cardiom egaly, small bilateral pleural effusion, extensive airspace disease throughout both lungs and a chest x-ray that revealed increased interstitial markings, bilateral airspace disease. The patient additi onally by telemetry has had an episode of wide complex tachycardia and as fast as approximately 170 b eats per minute, currently is ventricular paced. PAST MEDICAL HISTORY: As above in HPI. MEDICATIONS CURRENTLY IN HOSPITAL: 1. Pepcid 20 mg IV daily. 2. ____ mg b.i.d. 3. Azithromycin. 4. Zosyn. 5. Solu-Medrol 40 mg IV q.12. 6. Zofran p.r.n. 7. Tylenol p.r.n. 8. Dulcolax p.r.n. 9. Aspirin p.r.n. ALLERGIES: NO KNOWN DRUG ALLERGIES. SOCIAL HISTORY: No tobacco, EtOH or illicit drug use. FAMILY HISTORY: No history of sudden cardiac or early CAD. REVIEW OF SYSTEMS: As above in HPI. CONSTITUTIONAL: No current fevers. PULMONARY: Positive shortness of breath. CARDIOVASCULAR: History of permanent pacemaker. It is unclear if he has ICD. GASTROINTESTINAL: No vomiting. GENITOURINARY: No hematuria. MUSCULOSKELETAL: Generalized wasting. RENAL: Renal failure. PSYCHIATRIC: No documented psych history. PHYSICAL EXAMINATION: VITAL SIGNS: Temperature of 97, blood pressure 141/49, pulse 70, respiratory rate 17, satting 93%. GENERAL: The patient is alert, awake, with ongoing respiratory distress. NECK: JVP approximately is 9 cm of water. CHEST: Decreased breath sounds at bases bilaterally, but overall fair air movement throughout. HEART: Regular rate and rhythm. Normal S1, S2. Nondisplaced PMI. ABDOMEN: Positive bowel sounds, soft. EXTREMITIES: No significant pitting edema, 1+ pulses bilateral posterior tibial. LABORATORY DATA: Most recent from today, sodium 145, potassium 4.4, creatinine 0.36, BUN of 82. Tro ponin of 0.244 down from initially 0.253. IMAGING STUDIES: As above in HPI. No further imaging studies for my review at this time. ELECTROCARDIOGRAM: As above in HPI. No further electrocardiograms for my review at this time. IMPRESSION: 1. Positive troponin, assess significance. 2. Increased BNP, cardiomegaly on chest x-ray, assess for congestive heart failure. 3. Hypertension. 4. Human immunodeficiency virus positivity. 5. Renal failure. 6. Elevated LFTs. 7. Mild anemia. 8. Coagulopathy. RECOMMENDATIONS: 1. At this time, we would maintain the patient on telemetry monitoring to follow rhythm and rate con trol closely. 2. We will continue to trend the patient's cardiac enzymes, assess for any significant ongoing cardi ac damage and consider initiation of low dose aspirin given patient's thrombocytopenia. 3. We will initiate the patient on low dose beta deonna at this time for suppression of further jaja ts of tachyarrhythmia and we will give patient hydralazine afterload reduction. 4. Check a 2D echo for further assessment of ejection fraction, wall motion and major abnormalities. 5. We would continue the patient's broad-spectrum antibiotics and continue patient's ____ therapy. 6. We would start the patient on standing Lasix diuresis. The patient has been getting intermittent doses of Lasix throughout the today. Thank you for allowing me to take part in the care of this patient. I will continue to follow his ve ry closely with you with further recommendations to be made as [facility] Dictated By: ANA DEL ROSARIO/JANICE Conf#: [id number] DID#: [id number] CC: KALE CALDERÓN MD;*End*
[2018-10-01] VITALS (11 sets, daily range): BP systolic 109–150; BP diastolic 54–75; PULSE 65–78; RESP 18–24
[2018-10-01] MEDS: PIPER-TAZO 3.375 GM IV (PMX) 100 ML IVPB SCH ×4 (00:31→17:07)
[2018-10-01] MEDS: AZITHROMYCIN 500MG/NS (PMX) 250 ML IVPB SCH (07:49)
[2018-10-01] MEDS: FUROSEMIDE 20 MG INJ IV SCH (08:14)
[2018-10-01] MEDS: FAMOTIDINE 20 MG INJ IV SCH (08:14)
[2018-10-01] MEDS: METHYLPREDNISOLONE 40 MG INJ IV SCH ×2 (08:14→21:00)
--- NOTE | 2018-10-01 08:40 | CONS ---
Assessment/Plan Assessment/Plan Hospital Course (Demo Recall) 1) bilateral airspace disease by CT, pulmonary edema vs caitlyn pneumonia he has no systemic symptoms such as fever, chills, NS, muscle aches to suggest active infection his WBC is WNL he has HIV but I doubt this is PCP until G6PD results are back to avoid dapsone or primaquin so d/c clinda/primaquin and start mepron I will talk to his HIV doc later today and find out what his CD4 counts are like and if they have been >250 will d/c mepron zosyn started and to continue and will add azithro for atypical lung coverage check legionella, mycoplasma get viral PCR of nares check nasal for MRSA 10/01 - CD4 is good, mepron was stopped as this is not PCP procalcitonin is mildly improved and mildly elevated continue with zosyn/azithromycin consider d/c of decadron 2) HIV pt is on complera which contains tenofovir which can cause renal issues and lactic acidosis hold complera at present talk to primary HIV doc regarding prior renal function 10/01 - pt was well controlled with complera but will hold of on therapy as it is associated with renal disease (increase in creatinine and RTA) and lactic acidosis 3) renal insufficiency see above check u/a and urine cx 10/01 - not worse, no u/a resulted 4) increase in LFT's asymptomatic, if he has CHF this could be a mainfestation of vascular congestion u/s did not suggest liver disease but there was some thickening of GB wall, GB distension and a little of fluid around the GB consider HIDA scan 10/01 - worsening LFT's and t.bili, I will order HIDA scan as t.bili usually does not go up in simple heart failure 5) 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 his BNP is elevated Consultation Date/Type/Reason Admit Date/Time Sep 29, 2018 at 22:43 Initial Consult Date 09/30/18 Type of Consult ID Date/Time of Note DATE: 10/01/18 TIME: 08:28 24 HR Interval Summary Free Text/Dictation spoke to his HIV doc and he had CD4 in the 400's in july and HIV PCR was u ndetectable pt states still SOB, no cough no N, V, abd pain, D Exam/Review of Systems Exam Vitals Vital Signs Date Temp Pulse Resp B/P (MAP) Pulse Ox O2 O2 Flow FiO2 Time Delivery Rate 10/01/18 Nasal 4.0 07:35 Cannula 10/01/18 98.8 65 24 134/75 90 07:30 (94) Intake and Output 09/30/18 09/30/18 10/01/18 1515:00 23:00 07:00 IntakeIntake Total 350 ml 100 ml OutputOutput Total 1000 ml 450 ml 800 ml BalanceBalance -650 ml -350 ml -800 ml Constitutional: alert Eyes: nl sclera ENMT: other (yellow coating (likely from the mepron)) Respiratory: other (bibasilar rales) Cardiovascular: regular rate and rhythm Gastrointestinal: soft, non-tender Results Result Diagram: 10/01/18 0532 10/01/18 0532 Results 24hrs Laboratory Tests Test 09/30/18 10:32 09/30/18 16:52 10/01/18 05:32 Creatine Kinase 119 338 #H Creatine Kinase Index 6.6 3.3 Creatinine Kinase MB (Mass) 7.83 H 11.20 H Troponin I 0.244 *H 0.277 *H White Blood Count 5.6 Red Blood Count 5.28 Hemoglobin 12.3 L Hematocrit 41.0 L Mean Corpuscular Volume 77.7 L Mean Corpuscular Hemoglobin 23.3 L Mean Corpuscular Hemoglobin Concent 30.0 L Red Cell Distribution Width 22.5 H Platelet Count 50 #L Mean Platelet Volume Immature Granulocytes % 0.400 Neutrophils % 89.1 H Lymphocytes % 6.4 L Monocytes % 3.9 Eosinophils % 0.0 Basophils % 0.2 Nucleated Red Blood Cells % 3.0 H Immature Granulocytes # 0.020 Neutrophils # 5.0 Lymphocytes # 0.4 L Monocytes # 0.2 L Eosinophils # 0.0 Basophils # 0.0 Nucleated Red Blood Cells # 0.2 H Sodium Level 152 H Potassium Level 4.4 Chloride Level 116 H Carbon Dioxide Level 20 L Anion Gap 16 H Blood Urea Nitrogen 90 H Creatinine 1.42 H Est Glomerular Filtrat Rate mL/min Glucose Level 128 Calcium Level 9.1 Magnesium Level 2.9 H Total Bilirubin 3.8 H Direct Bilirubin 1.80 #H Indirect Bilirubin 2.0 H Aspartate Amino Transf (AST/SGOT) 260 #H Alanine Aminotransferase (ALT/SGPT) 159 H Alkaline Phosphatase 210 H Lactate Dehydrogenase 1705 H Total Protein 6.6 Albumin 3.6 Globulin 3.00 Albumin/Globulin Ratio 1.20 Procalcitonin 0.42 H Medications Medication Current Medications IV Flush (NS 3 ml) 3 ml PER PROTOCOL IV ; Start 09/29/18 at 23:00 Ondansetron HCl (Zofran Inj) 4 mg Q6H PRN IV NAUSEA/VOMITING; Start 09/29/18 at 23:00 Acetaminophen (Tylenol Tab) 650 mg Q6H PRN PO .PAIN 1-3 OR TEMP; Start 09/29/18 at 23:00 Docusate Sodium (Colace) 100 mg Q12H PRN PO .CONSTIPATION; Start 09/29/18 at 23:00 Bisacodyl (Dulcolax) 5 mg DAILY PRN PO .CONSTIPATION; Start 09/29/18 at 23:00 Levalbuterol (Xopenex Neb) 1.25 mg Q4H RESP THERAPY PRN HHN SHORTNESS OF BREATH; Start 09/29/18 at 23:00 Ipratropium [place] (Atrovent 0.02% (Neb)) 0.5 mg Q4H RESP THERAPY PRN HHN SHORTNESS OF BREATH; Start 09/29/18 at 23:00 Piperacillin Sod/ Tazobactam Sod 100 ml @ 200 mls/hr Q6 IVPB Last administered on 10/01/18at 06:27; Admin Dose 200 MLS/HR; Start 09/30/18 at 06:00 Methylprednisolone Sodium Succinate (Solu-Medrol) 40 mg Q12 IV Last administered on 10/01/18at 08:14; Admin Dose 40 MG; Start 09/30/18 at 06:00 Famotidine (Pepcid Iv) 20 mg DAILY IV Last administered on 10/01/18at 08:14; Admin Dose 20 MG; Start 09/30/18 at 09:00 Azithromycin 250 ml @ 250 mls/hr Q24H IVPB Last administered on 10/01/18at 07:49; Admin Dose 250 MLS/HR; Start 09/30/18 at 08:00 Phenol (Chloraseptic Throat [place]) 2 spray Q2H PRN MT SORE THROAT; Start 09/30/18 at 13:00 Carvedilol (Coreg) 3.125 mg BID PO Last administered on 10/01/18at 08:14; Admin Dose 3.125 MG; Start 09/30/18 at 21:00 Hydralazine HCl (Apresoline) 25 mg Q8 PO Last administered on 10/01/18 06:28; Admin Dose 25 MG; Start 09/30/18 at 22:00 Furosemide (Lasix) 20 mg DAILY IV Last administered on 10/01/18 08:14; Admin Dose 20 MG; Start 10/01/18 at 09:00 SCARLET ROBLERO MD Oct 01, 2018 08:38
[2018-10-01] MEDS: DEXTROSE 5% 1,000 ML IV SCH (09:44)
--- NOTE | 2018-10-01 10:50 | CONS ---
Assessment/Plan Assessment/Plan Assessment/Plan (Daily) Chest x-ray showing bilateral pneumonia. There is mild pulmonary edema with cardiomegaly present as well. ABG showing severe metabolic acidosis. This was done shortly during CPR. Assessment and recommendations; 1. Patient with history of HIV admitted for pneumonia currently on appropriate antimicrobial regimen. 2. Severely cachectic state. 3. Severe thrombocytopenia. 4. Chronic renal insufficiency. 5. Prior sternotomy. 6. Prior history of pacemaker placement. 7. Episode of cardiac arrest short while ago with revival of vital signs after brief CPR. Continue current supportive care. Prognosis appears extremely poor. Consultation Date/Type/Reason Admit Date/Time Sep 29, 2018 at 22:43 Initial Consult Date 09/30/18 Type of Consult Pulmonary Patient is a 87-year-old male who has been admitted to the hospital with hypoxemia at residential. Upon evaluation a chest x-ray was done which is showing significant cardiomegaly with changes consistent with pulmonary edema, confirmed by CT imaging of the chest later. Patient denies any fever, sputum production, hemoptysis, any wheezing. According to him he is feeling much better since admission. Denies any abdominal pain, nausea or vomiting. Past medical history; 1. Patient is HIV positive. 2. Severely emaciated state. 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 4. Anemia and severe thrombocytopenia. 5. Chronic renal insufficiency. 6. History of pacemaker placement. Medications; reviewed. Allergies; none. Social history; patient has a history of smoking. Family history; noncontributory. Occupational history; patient has had miscellaneous occupations. Review of systems; denies any headache, visual changes, seizures. Any dysphasia. Denies any chest pain, angina. Any coughing or wheezing. Any sputum production or hemoptysis. Complains of chronic shortness of breath. Patient maintained on 24 hours of oxygen at residential. Complains of weight loss. Denies any abdominal pain, hematochezia, melena. Patient experiencing continued weight loss. Complains of easy skin bruising. General exam; elderly male, appears totally macerated. Awake and alert. Currently in no distress. Date/Time of Note DATE: 10/01/18 TIME: 10:47 24 HR Interval Summary Free Text/Dictation Patient's condition is tenuous at best. Patient had a cardiac arrest event short while ago required very brief CPR with revival of vital signs. Patient is a DNI, he was not intubated. Patient currently is 100% nonrebreather mask. He is awake but appearing mildly lethargic. Exam/Review of Systems Exam Vitals Vital Signs Date Temp Pulse Resp B/P (MAP) Pulse Ox O2 O2 Flow FiO2 Time Delivery Rate 10/01/18 68 08:00 10/01/18 Nasal 4.0 07:35 Cannula 10/01/18 98.8 24 134/75 90 07:30 (94) Intake and Output 09/30/18 09/30/18 10/01/18 1515:00 23:00 07:00 IntakeIntake Total 350 ml 100 ml OutputOutput Total 1000 ml 450 ml 800 ml BalanceBalance -650 ml -350 ml -800 ml Exam General exam; elderly male, appears emaciated. Awake and responsive. H EENT exam; supple neck, patient is edentulous. No neck masses. Chest exam; diminished breath sounds throughout. S1-S2 audible, no murmurs. Pacemaker in left chest wall. There is a well-healed sternal scar. Abdomen exam; scaphoid, nontender. Bowel sounds are sluggish. Extremity exam; no peripheral edema. [employer] exam; patient is awake but lethargic Results Result Diagram: 10/01/18 0532 10/01/18 0532 Results 24hrs Laboratory Tests Test 09/30/18 16:52 10/01/18 05:32 10/01/18 09:23 10/01/18 09:35 Creatine Kinase 338 #H Creatine Kinase 3.3 Index Creatinine Kinase 11.20 H MB (Mass) Troponin I 0.277 *H White Blood Count 5.6 Red Blood Count 5.28 Hemoglobin 12.3 L Hematocrit 41.0 L Mean Corpuscular 77.7 L Volume Mean Corpuscular 23.3 L Hemoglobin Mean Corpuscular 30.0 L Hemoglobin Concen t Red Cell 22.5 H Distribution Width Platelet Count 50 #L Mean Platelet Volume Immature 0.400 Granulocytes % Neutrophils % 89.1 H Lymphocytes % 6.4 L Monocytes % 3.9 Eosinophils % 0.0 Basophils % 0.2 Nucleated Red 3.0 H Blood Cells % Immature 0.020 Granulocytes # Neutrophils # 5.0 Lymphocytes # 0.4 L Monocytes # 0.2 L Eosinophils # 0.0 Basophils # 0.0 Nucleated Red 0.2 H Blood Cells # Sodium Level 152 H Potassium Level 4.4 Chloride Level 116 H Carbon Dioxide 20 L Level Anion Gap 16 H Blood Urea 90 H Nitrogen Creatinine 1.42 H Est Glomerular Filtrat Rate mL/min Glucose Level 128 Calcium Level 9.1 Magnesium Level 2.9 H Total Bilirubin 3.8 H Direct Bilirubin 1.80 #H Indirect 2.0 H Bilirubin Aspartate Amino 260 #H Transf (AST/SGOT) Alanine 159 H Aminotransferase (ALT/SGPT) Alkaline 210 H Phosphatase Lactate 1705 H Dehydrogenase Total Protein 6.6 Albumin 3.6 Globulin 3.00 Albumin/Globulin 1.20 Ratio Procalcitonin 0.42 H Bedside Glucose 101 Blood Gas Blood arterial Specimen Source Arterial Blood 10/01/2018 9:45:1 Date Drawn 2 AM Arterial Blood pH 7.045 *L (Temp corrected) Arterial Blood 35.6 pCO2 (Temp correct) Arterial Blood 105.1 H pO2 (Temp corrected) Arterial Blood 9.5 *L HCO3 Arterial Blood -20.2 L Base Excess Arterial Blood 93.9 L Oxygen Saturation Regan Test N/A Arterial Blood Right Brachial Gas Puncture Site Arterial 1.0 Blood Carboxyhemo globin Arterial Blood 0.5 Methemoglobin Blood Gas A-a O2 572.3 H Differential Oxyhemoglobin 92.5 L Percent Blood Gas 37.0 Temperature Blood Gas MASK - NRB Modality FiO2 100.0 Blood Gas MAN OLIVARES Critical Value Read Back Blood Gas CW Notified Whom Blood Gas 10/01/2018 9:56:2 Notified Time 5 AM Medications Medication Current Medications IV Flush (NS 3 ml) 3 ml PER PROTOCOL IV ; Start 09/29/18 at 23:00 Ondansetron HCl (Zofran Inj) 4 mg Q6H PRN IV NAUSEA/VOMITING; Start 09/29/18 at 23:00 Acetaminophen (Tylenol Tab) 650 mg Q6H PRN PO .PAIN 1-3 OR TEMP; Start 09/29/18 at 23:00 Docusate Sodium (Colace) 100 mg Q12H PRN PO .CONSTIPATION; Start 09/29/18 at 23:00 Bisacodyl (Dulcolax) 5 mg DAILY PRN PO .CONSTIPATION; Start 09/29/18 at 23:00 Levalbuterol (Xopenex Neb) 1.25 mg Q4H RESP THERAPY PRN HHN SHORTNESS OF BREATH; Start 09/29/18 at 23:00 Ipratropium [place] (Atrovent 0.02% (Neb)) 0.5 mg Q4H RESP THERAPY PRN HHN SHORTNESS OF BREATH; Start 09/29/18 at 23:00 Piperacillin Sod/ Tazobactam Sod 100 ml @ 200 mls/hr Q6 IVPB Last administered on 10/01/18 06:27; Admin Dose 200 MLS/HR; Start 09/30/18 at 06:00 Methylprednisolone Sodium Succinate (Solu-Medrol) 40 mg Q12 IV Last administered on 10/01/18 08:14; Admin Dose 40 MG; Start 09/30/18 at 06:00 Famotidine (Pepcid Iv) 20 mg DAILY IV Last administered on 10/01/18 08:14; Admin Dose 20 MG; Start 09/30/18 at 09:00 Azithromycin 250 ml @ 250 mls/hr Q24H IVPB Last administered on 10/01/18 07:49; Admin Dose 250 MLS/HR; Start 09/30/18 at 08:00 Phenol (Chloraseptic Throat [place]) 2 spray Q2H PRN MT SORE THROAT; Start 09/30/18 at 13:00 Carvedilol (Coreg) 3.125 mg BID PO Last administered on 10/01/18 08:14; Admin Dose 3.125 MG; Start 09/30/18 at 21:00 Hydralazine HCl (Apresoline) 25 mg Q8 PO Last administered on 10/01/18 06:28; Admin Dose 25 MG; Start 09/30/18 at 22:00 Furosemide (Lasix) 20 mg DAILY IV Last administered on 10/01/18 08:14; Admin Dose 20 MG; Start 10/01/18 at 09:00 Dextrose 1,000 ml @ 60 mls/hr [id number] IV Last administered on 10/01/18 09:44; Admin Dose 60 MLS/HR; Start 10/01/18 at 09:00 WILBER ZHU 13, 2019 10:50
--- NOTE | 2018-10-01 12:47 | PN ---
Date/Time of Note Date/Time of Note DATE: 10/01/18 TIME: 12:25 Assessment/Plan VTE Prophylaxis Risk score (from Ns)>0 risk: 6 SCD applied (from Ns): No SCD contraindicated: other (scds) Pharmacological prophylaxis: other (scds) Lines/Catheters IV Catheter Type (from [facility]): Saline Lock Urinary Cath still in place: No Assessment/Plan Hospital Course Summary Assessment and Plan: Assessment: Bilateral airspace disease noted on c imaging -Pulmonary edema versus bilateral pneumonia Infectious disease/pulmonary following Elevated LFTs with indirect hyperbilirubinemia -Ultrasound of the liver shows thickening of the gallbladder without evidence of gallstones or sludge- -Chronic liver disease versus hypoproteinemia versus acalculous cholecystitis -Hepatitis B core antibody is reactive as well as hepatitis B surface antibody -Hep A total reactive- awaiting IgM -Pt on Complera which has a side effect of elevated LFTs - Will additionally check GABE, AMA, ASMA Microcytic anemia Thrombocytopenia Coagulopathy HIV Renal insufficiency CAD with history of pacemaker and CABG Elevated troponin-cardiology has been consulted Plan: Continue supportive care HIDA scan has been ordered. However there is indication for procedure such as ERCP patient would be too unstable to move forward at this time. Further recommendations based on on clinical course We will continue to monitor closely Patient seen in collaboration with Dr. Forte Subjective: Course reviewed with nursing staff Patient interviewed and examined All labs, imaging and other results reviewed S/p code blue this am. He is a DNI therefore only received compressions and Ambu bag Currently on Hi-flow resting in bed. PHYSICAL EXAMINATION: GENERAL: Emaciated, alert & oriented x 3, dyspnea O2 in place SKIN: No lesions HEAD: Normocephalic, atraumatic, no tenderness. EYES: Pupils equal reactive to light and accommodation, no discharge. EARS/NOSE AND THROAT: Ears normal, nose normal, oropharynx normal. NECK: Supple, no masses. CHEST: Inspection within normal limits. CARDIOVASCULAR: Heart: Regular rate and rhythm RESPIRATORY: Diminished GASTROINTESTINAL AND LIVER: Abdomen: Soft, non tenderness, non-distended, normoactive bowel sounds. Rectal: Deferred. EXTREMITIES: No cyanosis, clubbing or edema. Result Diagram: 10/01/18 0532 10/01/18 0532 Results 24hrs Laboratory Tests Test 09/30/18 16:52 6/13/19 05:32 10/01/18 09:23 10/01/18 09:35 Creatine Kinase 338 #H Creatine Kinase 3.3 Index Creatinine Kinase 11.20 H MB (Mass) Troponin I 0.277 *H White Blood Count 5.6 Red Blood Count 5.28 Hemoglobin 12.3 L Hematocrit 41.0 L Mean Corpuscular 77.7 L Volume Mean Corpuscular 23.3 L Hemoglobin Mean Corpuscular 30.0 L Hemoglobin Concen t Red Cell 22.5 H Distribution Width Platelet Count 50 #L Mean Platelet Volume Immature 0.400 Granulocytes % Neutrophils % 89.1 H Lymphocytes % 6.4 L Monocytes % 3.9 Eosinophils % 0.0 Basophils % 0.2 Nucleated Red 3.0 H Blood Cells % Immature 0.020 Granulocytes # Neutrophils # 5.0 Lymphocytes # 0.4 L Monocytes # 0.2 L Eosinophils # 0.0 Basophils # 0.0 Nucleated Red 0.2 H Blood Cells # Sodium Level 152 H Potassium Level 4.4 Chloride Level 116 H Carbon Dioxide 20 L Level Anion Gap 16 H Blood Urea 90 H Nitrogen Creatinine 1.42 H Est Glomerular Filtrat Rate mL/min Glucose Level 128 Calcium Level 9.1 Magnesium Level 2.9 H Total Bilirubin 3.8 H Direct Bilirubin 1.80 #H Indirect 2.0 H Bilirubin Aspartate Amino 260 #H Transf (AST/SGOT) Alanine 159 H Aminotransferase (ALT/SGPT) Alkaline 210 H Phosphatase Lactate 1705 H Dehydrogenase Total Protein 6.6 Albumin 3.6 Globulin 3.00 Albumin/Globulin 1.20 Ratio Procalcitonin 0.42 H Bedside Glucose 101 Blood Gas Blood arterial Specimen Source Arterial Blood 10/01/2018 9:45:1 Date Drawn 2 AM Arterial Blood pH 7.045 *L (Temp corrected) Arterial Blood 35.6 pCO2 (Temp correct) Arterial Blood 105.1 H pO2 (Temp corrected) Arterial Blood 9.5 *L HCO3 Arterial Blood -20.2 L Base Excess Arterial Blood 93.9 L Oxygen Saturation Regan Test N/A Arterial Blood Right Brachial Gas Puncture Site Arterial 1.0 Blood Carboxyhemo globin Arterial Blood 0.5 Methemoglobin Blood Gas A-a O2 572.3 H Differential Oxyhemoglobin 92.5 L Percent Blood Gas 37.0 Temperature Blood Gas MASK - NRB Modality FiO2 100.0 Blood Gas MAN OLIVARES Critical Value Read Back Blood Gas CW Notified Whom Blood Gas 10/01/2018 9:56:2 Notified Time 5 AM Exam/Review of Systems Exam Vitals Vital Signs Date Temp Pulse Resp B/P (MAP) Pulse Ox O2 O2 Flow FiO2 Time Delivery Rate 10/01/18 97.5 65 18 109/54 95 Non 11:22 (72) Rebreather 10/01/18 4.0 07:35 Intake and Output 09/30/18 09/30/18 10/01/18 1515:00 23:00 07:00 IntakeIntake Total 350 ml 100 ml OutputOutput Total 1000 ml 450 ml 800 ml BalanceBalance -650 ml -350 ml -800 ml Results Results 24hrs Laboratory Tests Test 09/30/18 16:52 10/01/18 05:32 10/01/18 09:23 10/01/18 09:35 Creatine Kinase 338 #H Creatine Kinase 3.3 Index Creatinine Kinase 11.20 H MB (Mass) Troponin I 0.277 *H White Blood Count 5.6 Red Blood Count 5.28 Hemoglobin 12.3 L Hematocrit 41.0 L Mean Corpuscular 77.7 L Volume Mean Corpuscular 23.3 L Hemoglobin Mean Corpuscular 30.0 L Hemoglobin Concen t Red Cell 22.5 H Distribution Width Platelet Count 50 #L Mean Platelet Volume Immature 0.400 Granulocytes % Neutrophils % 89.1 H Lymphocytes % 6.4 L Monocytes % 3.9 Eosinophils % 0.0 Basophils % 0.2 Nucleated Red 3.0 H Blood Cells % Immature 0.020 Granulocytes # Neutrophils # 5.0 Lymphocytes # 0.4 L Monocytes # 0.2 L Eosinophils # 0.0 Basophils # 0.0 Nucleated Red 0.2 H Blood Cells # Sodium Level 152 H Potassium Level 4.4 Chloride Level 116 H Carbon Dioxide 20 L Level Anion Gap 16 H Blood Urea 90 H Nitrogen Creatinine 1.42 H Est Glomerular Filtrat Rate mL/min Glucose Level 128 Calcium Level 9.1 Magnesium Level 2.9 H Total Bilirubin 3.8 H Direct Bilirubin 1.80 #H Indirect 2.0 H Bilirubin Aspartate Amino 260 #H Transf (AST/SGOT) Alanine 159 H Aminotransferase (ALT/SGPT) Alkaline 210 H Phosphatase Lactate 1705 H Dehydrogenase Total Protein 6.6 Albumin 3.6 Globulin 3.00 Albumin/Globulin 1.20 Ratio Procalcitonin 0.42 H Bedside Glucose 101 Blood Gas Blood arterial Specimen Source Arterial Blood 10/01/2018 9:45:1 Date Drawn 2 AM Arterial Blood pH 7.045 *L (Temp corrected) Arterial Blood 35.6 pCO2 (Temp correct) Arterial Blood 105.1 H pO2 (Temp corrected) Arterial Blood 9.5 *L HCO3 Arterial Blood -20.2 L Base Excess Arterial Blood 93.9 L Oxygen Saturation Regan Test N/A Arterial Blood Right Brachial Gas Puncture Site Arterial 1.0 Blood Carboxyhemo globin Arterial Blood 0.5 Methemoglobin Blood Gas A-a O2 572.3 H Differential Oxyhemoglobin 92.5 L Percent Blood Gas 37.0 Temperature Blood Gas MASK - NRB Modality FiO2 100.0 Blood Gas MAN OLIVARES Critical Value Read Back Blood Gas CW Notified Whom Blood Gas 10/01/2018 9:56:2 Notified Time 5 AM Medications Medication Current Medications IV Flush (NS 3 ml) 3 ml PER PROTOCOL IV ; Start 09/29/18 at 23:00 Ondansetron HCl (Zofran Inj) 4 mg Q6H PRN IV NAUSEA/VOMITING; Start 09/29/18 at 23:00 Acetaminophen (Tylenol Tab) 650 mg Q6H PRN PO .PAIN 1-3 OR TEMP; Start 09/29/18 at 23:00 Docusate Sodium (Colace) 100 mg Q12H PRN PO .CONSTIPATION; Start 09/29/18 at 23:00 Bisacodyl (Dulcolax) 5 mg DAILY PRN PO .CONSTIPATION; Start 09/29/18 at 23:00 Levalbuterol (Xopenex Neb) 1.25 mg Q4H RESP THERAPY PRN HHN SHORTNESS OF BREATH; Start 09/29/18 at 23:00 Ipratropium [place] (Atrovent 0.02% (Neb)) 0.5 mg Q4H RESP THERAPY PRN HHN SHORTNESS OF BREATH; Start 09/29/18 at 23:00 Piperacillin Sod/ Tazobactam Sod 100 ml @ 200 mls/hr Q6 IVPB Last administered on 10/01/18at 11:59; Admin Dose 200 MLS/HR; Start 09/30/18 at 06:00 Methylprednisolone Sodium Succinate (Solu-Medrol) 40 mg Q12 IV Last administered on 10/01/18at 08:14; Admin Dose 40 MG; Start 09/30/18 at 06:00 Famotidine (Pepcid Iv) 20 mg DAILY IV Last administered on 10/01/18 08:14; Admin Dose 20 MG; Start 09/30/18 at 09:00 Azithromycin 250 ml @ 250 mls/hr Q24H IVPB Last administered on 10/01/18 07:49; Admin Dose 250 MLS/HR; Start 09/30/18 at 08:00 Phenol (Chloraseptic Throat [place]) 2 spray Q2H PRN MT SORE THROAT; Start 09/30/18 at 13:00 Carvedilol (Coreg) 3.125 mg BID PO Last administered on 10/01/18 08:14; Admin Dose 3.125 MG; Start 09/30/18 at 21:00 Hydralazine HCl (Apresoline) 25 mg Q8 PO Last administered on 10/01/18 06:28; Admin Dose 25 MG; Start 09/30/18 at 22:00 Furosemide (Lasix) 20 mg DAILY IV Last administered on 10/01/18 08:14; Admin Dose 20 MG; Start 10/01/18 at 09:00 Dextrose 1,000 ml @ 60 mls/hr [id number] IV Last administered on 10/01/18 09:44; Admin Dose 60 MLS/HR; Start 10/01/18 at 09:00 HALI GROVE Oct 01, 2018 12:47
--- NOTE | 2018-10-01 13:59 | CONS ---
Assessment/Plan Assessment/Plan Hospital Course (Demo Recall) IMPRESSION: 1. Positive troponin, assess significance.- no significant uptrend 2. Increased BNP, cardiomegaly on chest x-ray, assess for congestive heart failure. 3. Hypertension. 4. Human immunodeficiency virus positivity. 5. Renal failure. 6. Elevated LFTs. 7. Mild anemia. 8. Coagulopathy. Recc: -Tele -serial ecg's -Contineu hydralazine/coreg -Contineu lasix diuresis and follow volume status and creatnine closely -Contineu steroids/abx's/bronchodilators Consultation Date/Type/Reason Admit Date/Time Sep 29, 2018 at 22:43 Initial Consult Date 09/30/18 Type of Consult Cardiology Reason for Consultation positive troponin Requesting Provider: BLANCO WEI Date/Time of Note DATE: 10/01/18 TIME: 13:56 Exam/Review of Systems Vital Signs Vitals Vital Signs Date Temp Pulse Resp B/P (MAP) Pulse Ox O2 O2 Flow FiO2 Time Delivery Rate 10/01/18 97.5 65 18 109/54 95 Non 11:22 (72) Rebreather 10/01/18 4.0 07:35 Intake and Output 09/30/18 09/30/18 10/01/18 1515:00 23:00 07:00 IntakeIntake Total 350 ml 100 ml OutputOutput Total 1000 ml 450 ml 800 ml BalanceBalance -650 ml -350 ml -800 ml Exam Exam Review of Systems: CONSTITUTIONAL: No fevers, chills. PULMONARY: mild sob CARDIOVASCULAR: No chest pain/palpitations GASTROINTESTINAL: No nausea/vomiting. GENITOURINARY: No hematuria/dysuria. MUSCULOSKELETAL: No myagias/arthalgias. PSYCHIATRIC: The patient denies depression. NEUROLOGIC: No weakness Constitutional: alert Psych: no complaints Head: normocephalic ENMT: mucosa pink and moist Neck: supple, jvd (9 cm water) Respiratory: diminished breath sounds (at bases/B) Cardiovascular: regular rate and rhythm Gastrointestinal: soft, non-tender Musculoskeletal: muscle weakness (mild generalized) Extremities: edema (none) Neurological: other (No ofcal deficits) Labs Result Diagram: 10/01/18 0532 10/01/18 0532 Results 24hrs Laboratory Tests Test 09/30/18 16:52 10/01/18 05:32 10/01/18 09:23 10/01/18 09:35 Creatine Kinase 338 #H Creatine Kinase 3.3 Index Creatinine Kinase 11.20 H MB (Mass) Troponin I 0.277 *H White Blood Count 5.6 Red Blood Count 5.28 Hemoglobin 12.3 L Hematocrit 41.0 L Mean Corpuscular 77.7 L Volume Mean Corpuscular 23.3 L Hemoglobin Mean Corpuscular 30.0 L Hemoglobin Concen t Red Cell 22.5 H Distribution Width Platelet Count 50 #L Mean Platelet Volume Immature 0.400 Granulocytes % Neutrophils % 89.1 H Lymphocytes % 6.4 L Monocytes % 3.9 Eosinophils % 0.0 Basophils % 0.2 Nucleated Red 3.0 H Blood Cells % Immature 0.020 Granulocytes # Neutrophils # 5.0 Lymphocytes # 0.4 L Monocytes # 0.2 L Eosinophils # 0.0 Basophils # 0.0 Nucleated Red 0.2 H Blood Cells # Sodium Level 152 H Potassium Level 4.4 Chloride Level 116 H Carbon Dioxide 20 L Level Anion Gap 16 H Blood Urea 90 H Nitrogen Creatinine 1.42 H Est Glomerular Filtrat Rate mL/min Glucose Level 128 Calcium Level 9.1 Magnesium Level 2.9 H Total Bilirubin 3.8 H Direct Bilirubin 1.80 #H Indirect 2.0 H Bilirubin Aspartate Amino 260 #H Transf (AST/SGOT) Alanine 159 H Aminotransferase (ALT/SGPT) Alkaline 210 H Phosphatase Lactate 1705 H Dehydrogenase Total Protein 6.6 Albumin 3.6 Globulin 3.00 Albumin/Globulin 1.20 Ratio Procalcitonin 0.42 H Bedside Glucose 101 Blood Gas Blood arterial Specimen Source Arterial Blood 10/01/2018 9:45:1 Date Drawn 2 AM Arterial Blood pH 7.045 *L (Temp corrected) Arterial Blood 35.6 pCO2 (Temp correct) Arterial Blood 105.1 H pO2 (Temp corrected) Arterial Blood 9.5 *L HCO3 Arterial Blood -20.2 L Base Excess Arterial Blood 93.9 L Oxygen Saturation Regan Test N/A Arterial Blood Right Brachial Gas Puncture Site Arterial 1.0 Blood Carboxyhemo globin Arterial Blood 0.5 Methemoglobin Blood Gas A-a O2 572.3 H Differential Oxyhemoglobin 92.5 L Percent Blood Gas 37.0 Temperature Blood Gas MASK - NRB Modality FiO2 100.0 Blood Gas MAN OLIVARES Critical Value Read Back Blood Gas CW Notified Whom Blood Gas 10/01/2018 9:56:2 Notified Time 5 AM Medications Medications Current Medications IV Flush (NS 3 ml) 3 ml PER PROTOCOL IV ; Start 09/29/18 at 23:00 Ondansetron HCl (Zofran Inj) 4 mg Q6H PRN IV NAUSEA/VOMITING; Start 09/29/18 at 23:00 Acetaminophen (Tylenol Tab) 650 mg Q6H PRN PO .PAIN 1-3 OR TEMP; Start 09/29/18 at 23:00 Docusate Sodium (Colace) 100 mg Q12H PRN PO .CONSTIPATION; Start 09/29/18 at 2 3:00 Bisacodyl (Dulcolax) 5 mg DAILY PRN PO .CONSTIPATION; Start 09/29/18 at 23:00 Levalbuterol (Xopenex Neb) 1.25 mg Q4H RESP THERAPY PRN HHN SHORTNESS OF BREATH; Start 09/29/18 at 23:00 Ipratropium [place] (Atrovent 0.02% (Neb)) 0.5 mg Q4H RESP THERAPY PRN HHN SHORTNESS OF BREATH; Start 09/29/18 at 23:00 Piperacillin Sod/ Tazobactam Sod 100 ml @ 200 mls/hr Q6 IVPB Last administered on 10/01/18at 11:59; Admin Dose 200 MLS/HR; Start 09/30/18 at 06:00 Methylprednisolone Sodium Succinate (Solu-Medrol) 40 mg Q12 IV Last administered on 10/01/18 08:14; Admin Dose 40 MG; Start 09/30/18 at 06:00 Famotidine (Pepcid Iv) 20 mg DAILY IV Last administered on 10/01/18at 08:14; Admin Dose 20 MG; Start 09/30/18 at 09:00 Azithromycin 250 ml @ 250 mls/hr Q24H IVPB Last administered on 10/01/18 07 :49; Admin Dose 250 MLS/HR; Start 09/30/18 at 08:00 Phenol (Chloraseptic Throat [place]) 2 spray Q2H PRN MT SORE THROAT; Start 09/30/18 at 13:00 Carvedilol (Coreg) 3.125 mg BID PO Last administered on 10/01/18at 08:14; Admin Dose 3.125 MG; Start 09/30/18 at 21:00 Hydralazine HCl (Apresoline) 25 mg Q8 PO Last administered on 10/01/18at 06:28; Admin Dose 25 MG; Start 09/30/18 at 22:00 Furosemide (Lasix) 20 mg DAILY IV Last administered on 10/01/18at 08:14; Admin Dose 20 MG; Start 10/01/18 at 09:00 Dextrose 1,000 ml @ 60 mls/hr [id number] IV Last administered on 10/01/18at 09:44; Admin Dose 60 MLS/HR; Start 10/01/18 at 09:00 ANA PEPPER Oct 01, 2018 13:59
--- NOTE | 2018-10-01 14:31 | PN ---
Date/Time of Note Date/Time of Note DATE: 10/01/18 TIME: 14:31 Assessment/Plan VTE Prophylaxis Risk score (from Ns)>0 risk: 6 [place] [facility] [place] contraindicated: patient refusal Pharmacological prophylaxis: NA/contraindicated Pharm contraindication: thrombocytopenia Lines/Catheters [facility] Saline Lock Urinary Cath still in place: No Assessment/Plan Assessment/Plan 1. Acute hypoxic respiratory failure - CXR in the am shows worsening infiltrates. Patient already on steroids, lasix, and antibiotics - ABG noted which was taken during the CODE BLUE. patient is a DNI - Pulm on board and recommendations appreciated. - continue supplemental O2 to maintain saturations >90% - imaging studies reviewed 2. Elevated LFT - Gi consulted for further recommendation and appreciate consultation. HIDA ordered and will proceed when patient more stable 3. NSTEMI - asymptomatic - most likely type 2 - EKG shows paced rhythm with RBBB - Cardiology consultation appreciated 4. LINDA - unsure baseline - fluctuating. if no improvement, will consult Nephrology - on HAART therapy which may effect renal function - continue IVF and avoid nephrotoxic agents 5. HIV - stable - ID consultation appreciated 6. HTN - stable 7. Coagulopathy - secondary to liver dz. no herbert bleeding appreciated 8. Thrombocytopenia - 2/2 liver disease - no herbert bleeding or need for transfusions at this time 9. Cachexia - dietary consultation appreciated - Speech therapy on board 10. Acute metabolic encephalopathy - resolved - CT head ordered when stable given change in pupil size during code 11. Disposition - Continue supportive care. Will need to discuss goals of care with patient when more alert or find POA. - CT head and HIDA ordered and will obtain when patient more stable Result Diagram: 10/01/18 0532 10/01/18 0532 Results 24hrs Laboratory Tests Test 09/30/18 16:52 10/01/18 05:32 10/01/18 09:23 10/01/18 09:35 Creatine Kinase 338 #H Creatine Kinase 3.3 Index Creatinine Kinase 11.20 H MB (Mass) Troponin I 0.277 *H White Blood Count 5.6 Red Blood Count 5.28 Hemoglobin 12.3 L Hematocrit 41.0 L Mean Corpuscular 77.7 L Volume Mean Corpuscular 23.3 L Hemoglobin Mean Corpuscular 30.0 L Hemoglobin Concen t Red Cell 22.5 H Distribution Width Platelet Count 50 #L Mean Platelet Volume Immature 0.400 Granulocytes % Neutrophils % 89.1 H Lymphocytes % 6.4 L Monocytes % 3.9 Eosinophils % 0.0 Basophils % 0.2 Nucleated Red 3.0 H Blood Cells % Immature 0.020 Granulocytes # Neutrophils # 5.0 Lymphocytes # 0.4 L Monocytes # 0.2 L Eosinophils # 0.0 Basophils # 0.0 Nucleated Red 0.2 H Blood Cells # Sodium Level 152 H Potassium Level 4.4 Chloride Level 116 H Carbon Dioxide 20 L Level Anion Gap 16 H Blood Urea 90 H Nitrogen Creatinine 1.42 H Est Glomerular Filtrat Rate mL/min Glucose Level 128 Calcium Level 9.1 Magnesium Level 2.9 H Total Bilirubin 3.8 H Direct Bilirubin 1.80 #H Indirect 2.0 H Bilirubin Aspartate Amino 260 #H Transf (AST/SGOT) Alanine 159 H Aminotransferase (ALT/SGPT) Alkaline 210 H Phosphatase Lactate 1705 H Dehydrogenase Total Protein 6.6 Albumin 3.6 Globulin 3.00 Albumin/Globulin 1.20 Ratio Procalcitonin 0.42 H Bedside Glucose 101 Blood Gas Blood arterial Specimen Source Arterial Blood 10/01/2018 9:45:1 Date Drawn 2 AM Arterial Blood pH 7.045 *L (Temp corrected) Arterial Blood 35.6 pCO2 (Temp correct) Arterial Blood 105.1 H pO2 (Temp corrected) Arterial Blood 9.5 *L HCO3 Arterial Blood -20.2 L Base Excess Arterial Blood 93.9 L Oxygen Saturation Regan Test N/A Arterial Blood Right Brachial Gas Puncture Site Arterial 1.0 Blood Carboxyhemo globin Arterial Blood 0.5 Methemoglobin Blood Gas A-a O2 572.3 H Differential Oxyhemoglobin 92.5 L Percent Blood Gas 37.0 Temperature Blood Gas MASK - NRB Modality FiO2 100.0 Blood Gas MAN OLIVARES Critical Value Read Back Blood Gas CW Notified Whom Blood Gas 10/01/2018 9:56:2 Notified Time 5 AM Subjective 24 Hr Interval Summary Free Text/Dictation Patient was found unresponsive this am without pulses and hypoxic. CPR was started on epi given with ROSC. Given his DNI status, he was placed on nonrebreather and saturations improved. Patients BP and HR remained stable and slowly became more responsive as the morning progressed. Exam/Review of Systems Exam Vitals Vital Signs Date Temp Pulse Resp B/P (MAP) Pulse Ox O2 O2 Flow FiO2 Time Delivery Rate 10/01/18 97.5 65 18 109/54 95 Non 11:22 (72) Rebreather 10/01/18 4.0 07:35 Intake and Output 09/30/18 09/30/18 10/01/18 1515:00 23:00 07:00 IntakeIntake Total 350 ml 100 ml OutputOutput Total 1000 ml 450 ml 800 ml BalanceBalance -650 ml -350 ml -800 ml Exam General: cachetic male, nonrebreather in place. nodding head to questions. no acute distress neck: supple Lungs: diminished breath sounds bilaterally, no crackles or wheezing. Heart: Normal S1-S2, Regular rhythm and bradycardia. No murmur, S3, or S4 Abdomen: Soft , nontender, nondistended , bowel sounds are present. No guarding no rebound tenderness Extremities: Normal to inspection, no edema no cyanosis Results Results 24hrs Laboratory Tests Test 09/30/18 16:52 10/01/18 05:32 10/01/18 09:23 10/01/18 09:35 Creatine Kinase 338 #H Creatine Kinase 3.3 Index Creatinine Kinase 11.20 H MB (Mass) Troponin I 0.277 *H White Blood Count 5.6 Red Blood Count 5.28 Hemoglobin 12.3 L Hematocrit 41.0 L Mean Corpuscular 77.7 L Volume Mean Corpuscular 23.3 L Hemoglobin Mean Corpuscular 30.0 L Hemoglobin Concen t Red Cell 22.5 H Distribution Width Platelet Count 50 #L Mean Platelet Volume Immature 0.400 Granulocytes % Neutrophils % 89.1 H Lymphocytes % 6.4 L Monocytes % 3.9 Eosinophils % 0.0 Basophils % 0.2 Nucleated Red 3.0 H Blood Cells % Immature 0.020 Granulocytes # Neutrophils # 5.0 Lymphocytes # 0.4 L Monocytes # 0.2 L Eosinophils # 0.0 Basophils # 0.0 Nucleated Red 0.2 H Blood Cells # Sodium Level 152 H Potassium Level 4.4 Chloride Level 116 H Carbon Dioxide 20 L Level Anion Gap 16 H Blood Urea 90 H Nitrogen Creatinine 1.42 H Est Glomerular Filtrat Rate mL/min Glucose Level 128 Calcium Level 9.1 Magnesium Level 2.9 H Total Bilirubin 3.8 H Direct Bilirubin 1.80 #H Indirect 2.0 H Bilirubin Aspartate Amino 260 #H Transf (AST/SGOT) Alanine 159 H Aminotransferase (ALT/SGPT) Alkaline 210 H Phosphatase Lactate 1705 H Dehydrogenase Total Protein 6.6 Albumin 3.6 Globulin 3.00 Albumin/Globulin 1.20 Ratio Procalcitonin 0.42 H Bedside Glucose 101 Blood Gas Blood arterial Specimen Source Arterial Blood 10/01/2018 9:45:1 Date Drawn 2 AM Arterial Blood pH 7.045 *L (Temp corrected) Arterial Blood 35.6 pCO2 (Temp correct) Arterial Blood 105.1 H pO2 (Temp corrected) Arterial Blood 9.5 *L HCO3 Arterial Blood -20.2 L Base Excess Arterial Blood 93.9 L Oxygen Saturation Regan Test N/A Arterial Blood Right Brachial Gas Puncture Site Arterial 1.0 Blood Carboxyhemo globin Arterial Blood 0.5 Methemoglobin Blood Gas A-a O2 572.3 H Differential Oxyhemoglobin 92.5 L Percent Blood Gas 37.0 Temperature Blood Gas MASK - NRB Modality FiO2 100.0 Blood Gas MAN OLIVARES Critical Value Read Back Blood Gas CW Notified Whom Blood Gas 10/01/2018 9:56:2 Notified Time 5 AM Medications Medication Current Medications IV Flush (NS 3 ml) 3 ml PER PROTOCOL IV ; Start 09/29/18 at 23:00 Ondansetron HCl (Zofran Inj) 4 mg Q6H PRN IV NAUSEA/VOMITING; Start 09/29/18 at 23:00 Acetaminophen (Tylenol Tab) 650 mg Q6H PRN PO .PAIN 1-3 OR TEMP; Start 09/29/18 at 23:00 Docusate Sodium (Colace) 100 mg Q12H PRN PO .CONSTIPATION; Start 09/29/18 at 23:00 Bisacodyl (Dulcolax) 5 mg DAILY PRN PO .CONSTIPATION; Start 09/29/18 at 23:00 Levalbuterol (Xopenex Neb) 1.25 mg Q4H RESP THERAPY PRN HHN SHORTNESS OF BREATH; Start 09/29/18 at 23:00 Ipratropium [place] (Atrovent 0.02% (Neb)) 0.5 mg Q4H RESP THERAPY PRN HHN SHORTNESS OF BREATH; Start 09/29/18 at 23:00 Piperacillin Sod/ Tazobactam Sod 100 ml @ 200 mls/hr Q6 IVPB Last administered on 10/01/18 11:59; Admin Dose 200 MLS/HR; Start 09/30/18 at 06:00 Methylprednisolone Sodium Succinate (Solu-Medrol) 40 mg Q12 IV Last administered on 10/01/18 08:14; Admin Dose 40 MG; Start 09/30/18 at 06:00 Famotidine (Pepcid Iv) 20 mg DAILY IV Last administered on 10/01/18 08:14; Admin Dose 20 MG; Start 09/30/18 at 09:00 Azithromycin 250 ml @ 250 mls/hr Q24H IVPB Last administered on 10/01/18 07:49; Admin Dose 250 MLS/HR; Start 09/30/18 at 08:00 Phenol (Chloraseptic Throat [place]) 2 spray Q2H PRN MT SORE THROAT; Start 09/30/18 at 13:00 Carvedilol (Coreg) 3.125 mg BID PO Last administered on 10/01/18 08:14; Admin Dose 3.125 MG; Start 09/30/18 at 21:00 Hydralazine HCl (Apresoline) 25 mg Q8 PO Last administered on 10/01/18 06:28; Admin Dose 25 MG; Start 09/30/18 at 22:00 Furosemide (Lasix) 20 mg DAILY IV Last administered on 10/01/18 08:14; Admin Dose 20 MG; Start 10/01/18 at 09:00 Dextrose 1,000 ml @ 60 mls/hr [id number] IV Last administered on 10/01/18 09:44; Admin Dose 60 MLS/HR; Start 10/01/18 at 09:00 VOLODYMYR PRIETO MD Oct 01, 2018 14:31
--- NOTE | 2018-10-01 14:57 | RADRPT ---
Vent Rate: 65 bpm RR Interval: 922 msec HI Interval: 95 msec QRS Duration: 200 msec QT Interval: 556 msec QTC Interval: 579 msec P-R-T [place]: 0 - -56 - 106 degrees Ventricular-paced rhythm Electronically Signed By: Romel Lewis
[2018-10-02] VITALS: PULSE 65
[2018-10-02] MEDS: PIPER-TAZO 3.375 GM IV (PMX) 100 ML IVPB SCH ×3 (00:47→12:00)
[2018-10-02] MEDS: DEXTROSE 5% 1,000 ML IV SCH (02:00)
[2018-10-02 03:50] VITALS: BP 114/54; PULSE 65; RESP 19
[2018-10-02 04:00] VITALS: PULSE 65
--- NOTE | 2018-10-02 06:28 | CONS ---
Assessment/Plan Assessment/Plan Hospital Course (Demo Recall) 1) bilateral airspace disease by CT, pulmonary edema vs caitlyn pneumonia he has no systemic symptoms such as fever, chills, NS, muscle aches to suggest active infection his WBC is WNL he has HIV but I doubt this is PCP until G6PD results are back to avoid dapsone or primaquin so d/c clinda/primaquin and start mepron I will talk to his HIV doc later today and find out what his CD4 counts are like and if they have been >250 will d/c mepron zosyn started and to continue and will add azithro for atypical lung coverage check legionella, mycoplasma get viral PCR of nares check nasal for MRSA 10/01 - CD4 is good, mepron was stopped as this is not PCP procalcitonin is mildly improved and mildly elevated continue with zosyn/azithromycin consider d/c of decadron 10/02 - continue with zosyn/azithro decadron may be exacerbating his pulmonary edema ABG at time of arrest showed severe acidosis but more metabolic origin check lactic acid this a.m. 2) HIV pt is on complera which contains tenofovir which can cause renal issues and lac tic acidosis hold complera at present talk to primary HIV doc regarding prior renal function 10/01 - pt was well controlled with complera but will hold of on therapy as it is associated with renal disease (increase in creatinine and RTA) and lactic acidosis 3) renal insufficiency see above check u/a and urine cx 10/01 - not worse, no u/a resulted 10/02 - a.m. labs pending but likely worse in light of pulseless arrest yesterday a.m. 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 most of his issues appear to be cardiac CT head did not show any acute changes to my eyes Consultation Date/Type/Reason Admit Date/Time Sep 29, 2018 at 22:43 Initial Consult Date 09/30/18 Type of Consult ID Requesting Provider: BLANCO WEI Date/Time of Note DATE: 10/02/18 TIME: 06:18 24 HR Interval Summary Free Text/Dictation pt had pulseless arrest yesterday a.m. and since then pt has been less responsive no V, D spoke to nurse pt denies BONILLA, pain anywhere no cough Exam/Review of Systems Exam Vitals Vital Signs Date Temp Pulse Resp B/P (MAP) Pulse Ox O2 O2 Flow FiO2 Time Delivery Rate 10/02/18 5.0 97 05:18 10/02/18 65 04:00 10/02/18 97.6 19 114/54 63 03:50 (74) 10/01/18 Nasal 21:00 Cannula Intake and Output 10/01/18 10/01/18 10/02/18 1515:00 23:00 07:00 IntakeIntake Total 350 ml 500 ml BalanceBalance 350 ml 500 ml Constitutional: alert, other (pt just answers a few yes-no questions) ENMT: other (dry mucus secretions noted on upper palate) Respiratory: clear to auscultation Cardiovascular: regular rate and rhythm Gastrointestinal: soft, non-tender Results Result Diagram: 10/01/18 0532 10/01/18 0532 Results 24hrs Laboratory Tests Test 10/01/18 09:23 10/01/18 09:35 10/02/18 06:01 Bedside Glucose 101 Blood Gas Specimen Source Blood arterial Arterial Blood Date Drawn 10/01/2018 9:45:12 AM Arterial Blood pH 7.045 *L (Temp corrected) Arterial Blood pCO2 35.6 (Temp correct) Arterial Blood pO2 105.1 H (Temp corrected) Arterial Blood HCO3 9.5 *L Arterial Blood Base Excess -20.2 L Arterial Blood 93.9 L Oxygen Saturation Regan Test N/A Arterial Blood Gas Right Brachial Puncture Site Arterial 1.0 Blood Carboxyhemoglobin Arterial Blood Methemoglobin 0.5 Blood Gas A-a O2 572.3 H Differential Oxyhemoglobin Percent 92.5 L Blood Gas Temperature 37.0 Blood Gas Modality MASK - NRB FiO2 100.0 Blood Gas Critical Value MAN OLIVARES Read Back Blood Gas Notified Whom CW Blood Gas Notified Time 10/01/2018 9:56:25 AM White Blood Count Pending Red Blood Count Pending Hemoglobin Pending Hematocrit Pending Mean Corpuscular Volume Pending Mean Corpuscular Hemoglobin Pending Mean Corpuscular Pending Hemoglobin Concent Red Cell Distribution Width Pending Platelet Count Pending Mean Platelet Volume Pending Medications Medication Current Medications IV Flush (NS 3 ml) 3 ml PER PROTOCOL IV ; Start 09/29/18 at 23:00 Ondansetron HCl (Zofran Inj) 4 mg Q6H PRN IV NAUSEA/VOMITING; Start 09/29/18 at 23:00 Acetaminophen (Tylenol Tab) 650 mg Q6H PRN PO .PAIN 1-3 OR TEMP; Start 09/29/18 at 23:00 Docusate Sodium (Colace) 100 mg Q12H PRN PO .CONSTIPATION; Start 09/29/18 at 23:00 Bisacodyl (Dulcolax) 5 mg DAILY PRN PO .CONSTIPATION; Start 09/29/18 at 23:00 Levalbuterol (Xopenex Neb) 1.25 mg Q4H RESP THERAPY PRN HHN SHORTNESS OF BREATH; Start 09/29/18 at 23:00 Ipratropium [place] (Atrovent 0.02% (Neb)) 0.5 mg Q4H RESP THERAPY PRN HHN SHORTNESS OF BREATH; Start 09/29/18 at 23:00 Piperacillin Sod/ Tazobactam Sod 100 ml @ 200 mls/hr Q6 IVPB Last administered on 10/02/18at 00:47; Admin Dose 200 MLS/HR; Start 09/30/18 at 06:00 Methylprednisolone Sodium Succinate (Solu-Medrol) 40 mg Q12 IV Last admini stered on 10/01/18at 21:00; Admin Dose 40 MG; Start 09/30/18 at 06:00 Azithromycin 250 ml @ 250 mls/hr Q24H IVPB Last administered on 10/01/18at 07:49; Admin Dose 250 MLS/HR; Start 09/30/18 at 08:00 Phenol (Chloraseptic Throat [place]) 2 spray Q2H PRN MT SORE THROAT; Start 09/30/18 at 13:00 Carvedilol (Coreg) 3.125 mg BID PO Last administered on 10/01/18 08:14; Admin Dose 3.125 MG; Start 09/30/18 at 21:00 Hydralazine HCl (Apresoline) 25 mg Q8 PO Last administered on 10/01/18 06:28; Admin Dose 25 MG; Start 09/30/18 at 22:00 Furosemide (Lasix) 20 mg DAILY IV Last administered on 10/01/18 08:14; Admin Dose 20 MG; Start 10/01/18 at 09:00 Dextrose 1,000 ml @ 60 mls/hr [id number] IV Last administered on 10/01/18 09:44; Admin Dose 60 MLS/HR; Start 10/01/18 at 09:00 Famotidine (Pepcid) 20 mg DAILY PO ; Start 10/02/18 at 09:00 SCARLET ROBLERO MD Oct 02, 2018 06:28
[2018-10-02] MEDS ORDERED: EPINEPHrine 0.1 MG/ML SYG ONE (07:00)
[2018-10-02 07:20] VITALS: BP 105/61; PULSE 64; RESP 24
[2018-10-02] MEDS: AZITHROMYCIN 500MG/NS (PMX) 250 ML IVPB SCH (08:07)
[2018-10-02] MEDS: FUROSEMIDE 20 MG INJ IV SCH (08:08)
[2018-10-02] MEDS: METHYLPREDNISOLONE 40 MG INJ IV SCH (08:09)
[2018-10-02 08:31] VITALS: PULSE 65
[2018-10-02] MEDS ORDERED: FAMOTIDINE 20 MG TAB PO SCH (09:00)
--- NOTE | 2018-10-02 10:54 | CONS ---
Consultation Date/Type/Reason Admit Date/Time Sep 29, 2018 at 22:43 Initial Consult Date 09/30/18 Type of Consult Pulmonary Patient is a 87-year-old male who has been admitted to the hospital with hypoxemia at assisted. Upon evaluation a chest x-ray was done which is showing significant cardiomegaly with changes consistent with pulmonary edema, confirmed by CT imaging of the chest later. Patient denies any fever, sputum production, hemoptysis, any wheezing. According to him he is feeling much better since admission. Denies any abdominal pain, nausea or vomiting. Past medical history; 1. Patient is HIV positive. 2. Severely emaciated state. 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 4. Anemia and severe thrombocytopenia. 5. Chronic renal insufficiency. 6. History of pacemaker placement. Medications; reviewed. Allergies; none. Social history; patient has a history of smoking. Family history; noncontributory. Occupational history; patient has had miscellaneous occupations. Review of systems; denies any headache, visual changes, seizures. Any dysphasia. Denies any chest pain, angina. Any coughing or wheezing. Any sputum production or hemoptysis. Complains of chronic shortness of breath. Patient maintained on 24 hours of oxygen at assisted. Complains of weight loss. Denies any abdominal pain, hematochezia, melena. Patient experiencing continued weight loss. Complains of easy skin bruising. General exam; elderly male, appears totally macerated. Awake and alert. Currently in no distress. Requesting Provider: BLANCO WEI Date/Time of Note DATE: 10/02/18 TIME: 10:52 24 HR Interval Summary Free Text/Dictation Patient's condition is tenuous. Remains lethargic. General exam; elderly male, lethargic. Currently no respiratory distress. H EENT exam; supple neck, no JVD. Patient is edentulous. No neck masses. Chest exam; diminished breath sounds throughout. S1-S2 audible, no murmurs. Regular rhythm. Pacemaker in left chest wall. There is a well-healed sternal scar. Abdomen exam; scaphoid. No organomegaly. Bowel sounds are sluggish. Extremity exam; no peripheral edema. MANAGER OF PLANNING exam; patient awake and responsive. But appears lethargic. Chest x-ray was reviewed from today which is showing pulmonary edema with cardiomegaly with bilateral infiltrates. Assessment and recommendations; 1. Patient with history of HIV cardiomyopathy admitted with hypoxemia. 2. Likely superimposed pneumonia, currently on appropriate antimicrobial regimen. Managed by ID custom decorating consultant. 3. Chronic renal insufficiency. 4. Severely emaciated state. 5. Anemia. 6. Severe thrombocytopenia. 7. Episode of cardiac arrest yesterday morning responded to brief CPR. 8. Prior history of CABG as well as pacemaker placement. Continue current supportive care. Prognosis appears very poor. Hospice should be considered. Exam/Review of Systems Exam Vitals Vital Signs Date Temp Pulse Resp B/P (MAP) Pulse Ox O2 O2 Flow FiO2 Time Delivery Rate 10/02/18 65 08:31 10/02/18 Nasal 4.0 07:45 Cannula 10/02/18 97.5 24 105/61 88 07:20 (76) 10/02/18 97 05:18 Intake and Output 10/01/18 10/01/18 10/02/18 1515:00 23:00 07:00 IntakeIntake Total 350 ml 500 ml BalanceBalance 350 ml 500 ml Results Result Diagram: 10/02/18 0730 10/02/18 0601 Results 24hrs Laboratory Tests Test 10/02/18 06:01 10/02/18 06:52 10/02/18 07:30 Sodium Level 152 H Potassium Level 4.4 Chloride Level 117 H Carbon Dioxide Level 15 L Anion Gap 20 H Blood Urea Nitrogen 115 H Creatinine 2.10 H Est Glomerular Filtrat Rate mL/min Glucose Level 135 Calcium Level 8.2 L Magnesium Level 2.9 H Total Bilirubin 4.9 H Direct Bilirubin 2.80 #H Indirect Bilirubin 2.1 H Aspartate Amino Transf (AST/SGOT) 355 H Alanine Aminotransferase (ALT/SGPT) 221 H Alkaline Phosphatase 177 H Total Protein 6.3 Albumin 3.5 Globulin 2.80 Albumin/Globulin Ratio 1.25 Lipase 1713 H Lactic Acid Level 6.7 *H White Blood Count 8.8 # Red Blood Count 5.08 Hemoglobin 11.9 L Hematocrit 39.7 L Mean Corpuscular Volume 78.1 L Mean Corpuscular Hemoglobin 23.4 L Mean Corpuscular Hemoglobin Concent 30.0 L Red Cell Distribution Width 22.8 H Platelet Count 28 #*L Mean Platelet Volume Immature Granulocytes % 0.500 H Neutrophils % 92.3 H Lymphocytes % 3.7 L Monocytes % 3.4 Eosinophils % 0.0 Basophils % 0.1 Nucleated Red Blood Cells % 2.7 H Immature Granulocytes # 0.040 H Neutrophils # 8.1 H Lymphocytes # 0.3 L Monocytes # 0.3 Eosinophils # 0.0 Basophils # 0.0 Nucleated Red Blood Cells # 0.2 H Pathologist Review (Hematology) YES Medications Medication Current Medications IV Flush (NS 3 ml) 3 ml PER PROTOCOL IV ; Start 09/29/18 at 23:00 Ondansetron HCl (Zofran Inj) 4 mg Q6H PRN IV NAUSEA/VOMITING; Start 09/29/18 at 23:00 Acetaminophen (Tylenol Tab) 650 mg Q6H PRN PO .PAIN 1-3 OR TEMP; Start 09/29/18 at 23:00 Docusate Sodium (Colace) 100 mg Q12H PRN PO .CONSTIPATION; Start 09/29/18 at 23:00 Bisacodyl (Dulcolax) 5 mg DAILY PRN PO .CONSTIPATION; Start 09/29/18 at 23:00 Levalbuterol (Xopenex Neb) 1.25 mg Q4H RESP THERAPY PRN HHN SHORTNESS OF BREATH; Start 09/29/18 at 23:00 Ipratropium [place] (Atrovent 0.02% (Neb)) 0.5 mg Q4H RESP THERAPY PRN HHN SHORTNESS OF BREATH; Start 09/29/18 at 23:00 Piperacillin Sod/ Tazobactam Sod 100 ml @ 200 mls/hr Q6 IVPB Last administered on 10/02/18at 06:49; Admin Dose 200 MLS/HR; Start 09/30/18 at 06:00 Methylprednisolone Sodium Succinate (Solu-Medrol) 40 mg Q12 IV Last administered on 10/02/18at 08:09; Admin Dose 40 MG; Start 09/30/18 at 06:00 Azithromycin 250 ml @ 250 mls/hr Q24H IVPB Last administered on 10/02/18at 08:07; Admin Dose 250 MLS/HR; Start 09/30/18 at 08:00 Phenol (Chloraseptic Throat [place]) 2 spray Q2H PRN MT SORE THROAT; Start 09/30/18 at 13:00 Carvedilol (Coreg) 3.125 mg BID PO Last administered on 10/01/18at 08:14; Admin Dose 3.125 MG; Start 09/30/18 at 21:00 Hydralazine HCl (Apresoline) 25 mg Q8 PO Last administered on 10/01/18at 06:28; Admin Dose 25 MG; Start 09/30/18 at 22:00 Furosemide (Lasix) 20 mg DAILY IV Last administered on 10/02/18at 08:08; Admin Dose 20 MG; Start 10/01/18 at 09:00 Dextrose 1,000 ml @ 80 mls/hr [id number] IV Last administered on 10/02/18at 02:00; Admin Dose 60 MLS/HR; Start 10/01/18 at 09:00 Famotidine (Pepcid) 20 mg DAILY PO ; Start 10/02/18 at 09:00 WILBER ZHU Oct 02, 2018 10:54
[2018-10-02 11:13] VITALS: PULSE 71
--- NOTE | 2018-10-02 14:14 | PN ---
Date/Time of Note Date/Time of Note DATE: 10/02/18 TIME: 13:46 Assessment/Plan VTE Prophylaxis Risk score (from Ns)>0 risk: 6 SCD applied (from [facility]): No SCD contraindicated: patient refusal Pharmacological prophylaxis: NA/contraindicated Pharm contraindication: thrombocytopenia Lines/Catheters IV C[facility]ter Type (from [facility]): Peripheral IV Urinary Cath still in place: No Assessment/Plan Assessment/Plan 1. Acute hypoxic respiratory failure - patient found unresponsive and not breathing this am. Saturations continued to fluctuate between 20s and 90s. Ambu bag was used. - CXR in the am showed congestion and was given Lasix this am - Pulm on board and recommendations appreciated. 2. 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 NSTEMI - most likely type 2 - EKG shows paced rhythm with RBBB - Cardiology consultation appreciated 4. LINDA- worsening - most likely worsening given cardiac arrest yesterday 5. HIV - stable - ID consultation appreciated - CD4 count noted 6. HTN - stable 7. Coagulopathy - secondary to liver dz. no herbert bleeding appreciated 8. Thrombocytopenia - 2/2 liver disease - no herbert bleeding or need for transfusions at this time 9. Cachexia - dietary consultation appreciated 10. Acute metabolic encephalopathy - resolved - CT head without acute issues 11. Disposition - Patient passed at 11:30am. His POA was made aware and plans for donation to [facility] [place] per patients wishes. Result Diagram: 10/02/18 0730 10/02/18 0601 Results 24hrs Laboratory Tests Test 10/02/18 06:01 10/02/18 06:52 10/02/18 07:30 10/02/18 11:15 Sodium Level 152 H Potassium Level 4.4 Chloride Level 117 H Carbon Dioxide 15 L Level Anion Gap 20 H Blood Urea 115 H Nitrogen Creatinine 2.10 H Est Glomerular Filtrat Rate mL/min Glucose Level 135 Calcium Level 8.2 L Magnesium Level 2.9 H Total Bilirubin 4.9 H Direct Bilirubin 2.80 #H Indirect Bilirubin 2.1 H Aspartate Amino 355 H Transf (AST/SGOT) Alanine 221 H Aminotransferase ( ALT/SGPT) Alkaline 177 H Phosphatase Total Protein 6.3 Albumin 3.5 Globulin 2.80 Albumin/Globulin 1.25 Ratio Lipase 1713 H Lactic Acid Level 6.7 *H White Blood Count 8.8 # Red Blood Count 5.08 Hemoglobin 11.9 L Hematocrit 39.7 L Mean Corpuscular 78.1 L Volume Mean Corpuscular 23.4 L Hemoglobin Mean Corpuscular 30.0 L Hemoglobin Concent Red Cell 22.8 H Distribution Width Platelet Count 28 #*L Mean Platelet Volume Immature 0.500 H Granulocytes % Neutrophils % 92.3 H Segmented 79 H Neutrophils % (Manual) Band Neutrophils % 17 H (Manual) Lymphocytes % 3.7 L Lymphocytes % 3 L (Manual) Monocytes % 3.4 Monocytes % 1 (Manual) Eosinophils % 0.0 Basophils % 0.1 Nucleated Red 3 H Blood Cells % Immature 0.040 H Granulocytes # Neutrophils # 8.1 H Neutrophils # 7.1 (Manual) Band Neutrophils # 1.4 H Lymphocytes 0.2 L (Manual) Lymphocytes # 0.3 L Monocytes # 0.3 Monocytes # 0.0 L (Manual) Eosinophils # 0.0 Basophils # 0.0 Nucleated Red 0.2 H Blood Cells # Pathologist YES Review (Hematology ) Platelet Estimate DECREASED Hypochromasia 1+ Poikilocytosis 3+ Anisocytosis 2+ Macrocytosis 2+ Bedside Glucose 126 Test 10/02/18 11:18 Lab Scanned Report REFERENCE LAB Subjective 24 Hr Interval Summary Free Text/Dictation Patient was noted with no issues this am but was about to be picked up for HIDA scan. Upon entering room at 11:10 patient found unresponsive with no chest rise or pulse. CPR was initiated and 4 rounds of epi were given with no ROSC. CPR was stopped and patient was declared at 11:30am. Patient was DNI. Exam/Review of Systems Exam Vitals Vital Signs Date Temp Pulse Resp B/P (MAP) Pulse Ox O2 O2 Flow FiO2 Time Delivery Rate 10/02/18 4.0 11:30 10/02/18 71 11:13 10/02/18 Nasal 07:45 Cannula 10/02/18 97.5 24 105/61 88 07:20 (76) 10/02/18 97 05:18 Intake and Output 10/01/18 10/01/18 10/02/18 1515:00 23:00 07:00 IntakeIntake Total 350 ml 500 ml BalanceBalance 350 ml 500 ml Exam General: cachetic male, unresponsive, pale HEENT: NC/AT. pupils nonreactive neck: supple Lungs: absent breath sounds Heart: absent S1-S2 Abdomen: Soft , concaved, nondistended Extremities: diffuse muscle wasting skin: cold, pale Results Results 24hrs Laboratory Tests Test 10/02/18 06:01 10/02/18 06:52 10/02/18 07:30 10/02/18 11:15 Sodium Level 152 H Potassium Level 4.4 Chloride Level 117 H Carbon Dioxide 15 L Level Anion Gap 20 H Blood Urea 115 H Nitrogen Creatinine 2.10 H Est Glomerular Filtrat Rate mL/min Glucose Level 135 Calcium Level 8.2 L Magnesium Level 2.9 H Total Bilirubin 4.9 H Direct Bilirubin 2.80 #H Indirect Bilirubin 2.1 H Aspartate Amino 355 H Transf (AST/SGOT) Alanine 221 H Aminotransferase ( ALT/SGPT) Alkaline 177 H Phosphatase Total Protein 6.3 Albumin 3.5 Globulin 2.80 Albumin/Globulin 1.25 Ratio Lipase 1713 H Lactic Acid Level 6.7 *H White Blood Count 8.8 # Red Blood Count 5.08 Hemoglobin 11.9 L Hematocrit 39.7 L Mean Corpuscular 78.1 L Volume Mean Corpuscular 23.4 L Hemoglobin Mean Corpuscular 30.0 L Hemoglobin Concent Red Cell 22.8 H Distribution Width Platelet Count 28 #*L Mean Platelet Volume Immature 0.500 H Granulocytes % Neutrophils % 92.3 H Segmented 79 H Neutrophils % (Manual) Band Neutrophils % 17 H (Manual) Lymphocytes % 3.7 L Lymphocytes % 3 L (Manual) Monocytes % 3.4 Monocytes % 1 (Manual) Eosinophils % 0.0 Basophils % 0.1 Nucleated Red 3 H Blood Cells % Immature 0.040 H Granulocytes # Neutrophils # 8.1 H Neutrophils # 7.1 (Manual) Band Neutrophils # 1.4 H Lymphocytes 0.2 L (Manual) Lymphocytes # 0.3 L Monocytes # 0.3 Monocytes # 0.0 L (Manual) Eosinophils # 0.0 Basophils # 0.0 Nucleated Red 0.2 H Blood Cells # Pathologist YES Review (Hematology ) Platelet Estimate DECREASED Hypochromasia 1+ Poikilocytosis 3+ Anisocytosis 2+ Macrocytosis 2+ Bedside Glucose 126 Test 10/02/18 11:18 Lab Scanned Report REFERENCE LAB Medications Medication Current Medications IV Flush (NS 3 ml) 3 ml PER PROTOCOL IV ; Start 09/29/18 at 23:00 Ondansetron HCl (Zofran Inj) 4 mg Q6H PRN IV NAUSEA/VOMITING; Start 09/29/18 at 23:00 Acetaminophen (Tylenol Tab) 650 mg Q6H PRN PO .PAIN 1-3 OR TEMP; Start 09/29/18 at 23:00 Docusate Sodium (Colace) 100 mg Q12H PRN PO .CONSTIPATION; Start 09/29/18 at 23:00 Bisacodyl (Dulcolax) 5 mg DAILY PRN PO .CONSTIPATION; Start 09/29/18 at 23:00 Levalbuterol (Xopenex Neb) 1.25 mg Q4H RESP THERAPY PRN HHN SHORTNESS OF BREATH; Start 09/29/18 at 23:00 Ipratropium [place] (Atrovent 0.02% (Neb)) 0.5 mg Q4H RESP THERAPY PRN HHN SHORTNESS OF BREATH; Start 09/29/18 at 23:00 Piperacillin Sod/ Tazobactam Sod 100 ml @ 200 mls/hr Q6 IVPB Last administered on 10/02/18at 06:49; Admin Dose 200 MLS/HR; Start 09/30/18 at 06:00 Methylprednisolone Sodium Succinate (Solu-Medrol) 40 mg Q12 IV Last administered on 10/02/18at 08:09; Admin Dose 40 MG; Start 09/30/18 at 06:00 Azithromycin 250 ml @ 250 mls/hr Q24H IVPB Last administered on 10/02/18at 08:07; Admin Dose 250 MLS/HR; Start 09/30/18 at 08:00 Phenol (Chloraseptic Throat [place]) 2 spray Q2H PRN MT SORE THROAT; Start 09/30/18 at 13:00 Carvedilol (Coreg) 3.125 mg BID PO Last administered on 10/01/18at 08:14; Admin Dose 3.125 MG; Start 09/30/18 at 21:00 Hydralazine HCl (Apresoline) 25 mg Q8 PO Last administered on 10/01/18at 06:28; Admin Dose 25 MG; Start 09/30/18 at 22:00 Furosemide (Lasix) 20 mg DAILY IV Last administered on 10/02/18at 08:08; Admin Dose 20 MG; Start 10/01/18 at 09:00 Dextrose 1,000 ml @ 80 mls/hr [id number] IV Last administered on 10/02/18at 02:00; Admin Dose 60 MLS/HR; Start 10/01/18 at 09:00 Famotidine (Pepcid) 20 mg DAILY PO ; Start 10/02/18 at 09:00 VOLODYMYR PRIETO MD Oct 02, 2018 14:06
--- NOTE | 2018-10-02 14:15 | DES ---
Date/Time of Note Date/Time of Note DATE: 10/02/18 TIME: 14:15 Discharge/ Summary Admission/Discharge Info Admit Date/Time Sep 29, 2018 at 22:43 Date/Time 10/02/18 at 11:30am Final Diagnosis Failure to thrive Preliminary Cause of Acute hypoxic respiratory failure secondary to pulmonary edema from heart fail ure Admit History Chief complaint: Shortness of breath for the last 5 days This is a 87-year-old male who presented to the emergency department with symptoms of shortness of breath and cough for the last 5 days. He denies having any fevers. He did report having some left-sided chest discomfort but denies any overt chest pain. Denies any swelling in his legs. He states that he lives at home by himself. He uses able to ambulate on his own however he has been tired over the last few days. He has a history of HIV and is currently on prophylactic medications he states but does not recall the names. He does have a history of hypertension and anxiety. He also has a pacemaker. Patient is a poor historian. In the emergency department patient was treated for pneumonia with antibiotics. Allergies: NKDA Hospital Course Patient was admitted for treatment of acute hypoxic respiratory failure believed to be secondary to pulmonary edema from severe cardiomyopathy. Pulmonology consultation was placed as well as cardiology. He was started on broad spectrum antibiotics given concern for underlying pneumonia as well as steroids and lasix. Given patients elevated LFT and findings of Hep C, GI was consulted and HIDA scan was ordered. Infectious disease was consulted as well for antibiotic recommendations as well as management of HIV medications. Hospitzliation was complicated by episode of cardiac arrest with ROSC after one round of epi. Patient was lethargic but remained stable. He was taken for CT scan of head to assess AMS which no acute findings. Patient was noted with worsening renal function and Nephrology was consulted. Patient was also noted with worsening liver failure and cleared for HIDA scan. Prior to transports arrival, patient was found pulseless, no chest rise, and unresponsive. CPR was initiated and patient was given 4 rounds of epinephrine as well as 1 amp of sodium bicarb. After 15 minutes, ROSC was not obtained and patient was pronounced at 1 1:30 am. Pending Labs/Cultures Laboratory Tests Test 10/02/18 06:01 10/02/18 06:52 10/02/18 07:30 10/02/18 11:15 Sodium Level 152 mmol/L (135-144 ) Potassium 4.4 Level mmol/L (3.5-5.1 ) Chloride Level 117 mmol/L (97-110) Carbon Dioxide 15 Level mmol/L (21-31) Anion Gap 20 (5-13) Blood Urea 115 Nitrogen mg/dl (7-20) Creatinine 2.10 mg/dl (0.61-1.2 4) Est Glomerular mL/min (>60) Filtrat Rate mL/min Glucose Level 135 mg/dl (70-220) Calcium Level 8.2 mg/dl (8.4-10.2 ) Magnesium 2.9 Level mg/dl (1.7-2.5) Total 4.9 Bilirubin mg/dl (0.2-1.3) Direct 2.80 Bilirubin mg/dl (0.00-0.2 0) Indirect 2.1 Bilirubin mg/dl (0-1.1) Aspartate Amino 355 Transf (AST/SGO IU/L (15-46) T) Alanine 221 Aminotransferas IU/L (13-69) e (ALT/SGPT) Alkaline 177 Phosphatase IU/L (42-121) Total Protein 6.3 g/dl (6.1-8.1) Albumin 3.5 g/dl (3.3-4.9) Globulin 2.80 g/dl (1.3-3.2) Albumin/Globuli 1.25 n Ratio Lipase 1713 U/L (23-300) Lactic Acid 6.7 Level mmol/L (0.5-2. 0) White Blood 8.8 Count 10^3/ul (4.8-1 0.8) Red Blood 5.08 Count 10^6/ul (4.70- 6.10) Hemoglobin 11.9 g/dl (14.0-18. 0) Hematocrit 39.7 % (42.0-52.0) Mean 78.1 Corpuscular fl (82.0-101.0 Volume ) Mean 23.4 Corpuscular pg (29.0-33.0) Hemoglobin Mean 30.0 Corpuscular g/dl (32.0-37. Hemoglobin Conc 0) ent Red Cell 22.8 Distribution % (11.5-14.5) Width Platelet Count 28 10^3/UL (140-4 15) Mean Platelet fl (7.4-10.4) Volume Immature 0.500 Granulocytes % % (0.001-0.429 ) Neutrophils % 92.3 % (39.0-77.0) Segmented 79 % (39-77) Neutrophils % (Manual) Band 17 % (0-4) Neutrophils % (Manual) Lymphocytes % 3.7 % (15.0-51.0) Lymphocytes % 3 % (15-51) (Manual) Monocytes % 3.4 % (0.0-11.0) Monocytes % 1 % (0-11) (Manual) Eosinophils % 0.0 % (0.0-7.0) Basophils % 0.1 % (0.0-2.0) Nucleated Red 3 % (0-0) Blood Cells % Immature 0.040 Granulocytes # 10^3/ul (0.0-0 .031) Neutrophils # 8.1 10^3/ul (1.6-7 .5) Neutrophils # 7.1 (Manual) 10^3/ul (1.6-7 .5) Band 1.4 Neutrophils # 10^3/ul (0.0-0 .6) Lymphocytes 0.2 (Manual) 10^3/ul (0.8-2 .9) Lymphocytes # 0.3 10^3/ul (0.8-2 .9) Monocytes # 0.3 10^3/ul (0.3-0 .9) Monocytes # 0.0 (Manual) 10^3/ul (0.3-0 .9) Eosinophils # 0.0 10^3/ul (0.0-0 .5) Basophils # 0.0 10^3/ul (0.0-0 .1) Nucleated Red 0.2 Blood Cells # 10^3/ul (0.0-0 .0) Pathologist YES Review (Hematol ogy) Platelet DECREASED Estimate Hypochromasia 1+ (0-0) Poikilocytosis 3+ (0-0) Anisocytosis 2+ (0-0) Macrocytosis 2+ (0-0) Bedside 126 Glucose mg/dL (70-220) Test 10/02/18 11:18 Lab Scanned REFERENCE Report LAB [id number] VOLODYMYR PRIETO MD Oct 02, 2018 14:15
--- NOTE | 2018-10-02 14:15 | PDOCDIS ---
Discharge Instructions DIAGNOSIS Discharge Diagnosis 1. Acute hypoxic respiratory failure 2. Elevated LFT 3. NSTEMI 4. Acute renal failure 5. HIV 6. HTN 7. Coagulopathy 8. Thrombocytopenia 9. Cachexia 10. Acute metabolic encephalopathy 11. Hepatitis C CONDITION [id number] Patient Condition: [id number] VOLODYMYR Hendrickson MD Oct 02, 2018 14:15
== END 2018-10-02 14:35 | disposition expired ==
LOC: E/R 20:46 → 6WM 22:43
PROVIDERS: ADMIT Family Medicine; ATTEND Internal Medicine
PROC: 4A033R1 Measurement of Arterial Saturation, Peripheral, Percutaneous Approach (ICD-10-PCS; 2018-09-29)
PROC: 5A12012 Performance of Cardiac Output, Single, Manual (ICD-10-PCS; principal; 2018-10-02)
DX: I11.0 Hypertensive heart disease with heart failure (principal); G93.41 Metabolic encephalopathy; I21.4 Non-ST elevation (NSTEMI) myocardial infarction; J96.01 Acute respiratory failure with hypoxia; E87.2 Acidosis; D68.9 Coagulation defect, unspecified; N17.9 Acute kidney failure, unspecified; R64 Cachexia; Z68.1 Body mass index [BMI] 19.9 or less, adult; I50.43 Acute on chronic combined systolic (congestive) and diastolic (congestive) heart failure; I42.8 Other cardiomyopathies; I25.10 Atherosclerotic heart disease of native coronary artery without angina pectoris; R62.7 Adult failure to thrive; F41.9 Anxiety disorder, unspecified; B18.2 Chronic viral hepatitis C; K72.90 Hepatic failure, unspecified without coma; I46.9 Cardiac arrest, cause unspecified; D69.6 Thrombocytopenia, unspecified; D69.59 Other secondary thrombocytopenia; D50.9 Iron deficiency anemia, unspecified; Z95.1 Presence of aortocoronary bypass graft; R79.89 Other specified abnormal findings of blood chemistry; Z87.891 Personal history of nicotine dependence; Z95.0 Presence of cardiac pacemaker
CPT/HCPCS: 36415; 36600; 70450; 71045; 71250; 76705; 76775; 80048; 80053; 82550; 82553; 82803; 82955; 82962; 83036; 83605; 83615; 83690; 83735; 83880; 84145; 84443; 84484; 85025; 85610; 85651; 85730; 86140; 86360; 86701; 86703; 86704; 86706; 86708; 86709; 86738; 86803; 87275; 87276; 87279; 87280; 87340; 87536; 92950; 93005; 93306; 94664; 96361; 96374; J0171; J0456; J1940; J2185; J2543; J2920; J3370; J3475; J7030; J7070; P9047